=== PATIENT | female | born 1960 | race African-American/Black ===

== ENCOUNTER 2016-06-14 17:06 | Emergency (ER) | payer BC, OTHER ==
[2016-06-14 18:42] VITALS: BP 148/76
--- NOTE | 2016-06-14 18:49 | UC ---
Respiratory Complaint HPI - HPI Summary HPI Summary: 56 yo female with sore throat/nasal congestion/cough x 2 weeks no fever/chills no nausea/vomiting/diarrhea no headache - History of Current Complaint Chief Complaint: UCRespiratory Stated Complaint: SORE THROAT Time Seen by Provider: 06/14/16 18:31 Hx Obtained From: Patient Onset/Duration: Gradual Onset, Lasting Weeks Timing: Constant Severity Initially: Mild Severity Currently: Moderate Pain Intensity: 4 Pain Scale Used: 0-10 Numeric Character: Cough: Productive Aggravating Factors: Nothing Alleviating Factors: Nothing Associated Signs And Symptoms: Positive: Nasal Congestion, Hoarseness, Sinus Discomfort - Allergies/Home Medications Allergies/Adverse Reactions: Allergies Allergy/AdvReac Type Severity Reaction Status Date / Time No Known Allergies Allergy Verified 06/14/16 18:36 Home Medications: Home Medications Lisinopril [Lisinopril 30 MG-] 30 mg PO DAILY 06/14/16 [History Confirmed ] PMH/Surg Hx/FS Hx/Imm Hx Previously Healthy: Yes Cardiovascular History Of: Reports: Hypertension Cancer History Of: Denies: Breast Cancer - Surgical History Surgical History: None - Family History Known Family History: Positive: Hypertension - Social History Alcohol Use: None Substance Use Type: None Smoking Status (MU): Never Smoked Tobacco Review of Systems Constitutional: Negative Skin: Negative Eyes: Negative ENT: Sore Throat, Nasal Discharge Respiratory: Cough Cardiovascular: Negative Gastrointestinal: Negative Genitourinary: Negative Motor: Negative Neurovascular: Negative Musculoskeletal: Negative Neurological: Negative Psychological: Negative All Other Systems Reviewed And Are Negative: Yes Physical Exam Triage Information Reviewed: Yes Appearance: Well-Appearing, No Pain Distress, Well-Nourished Vital Signs: Initial Vital Signs Temp 97.9 F 06/14/16 18:36 Pulse 78 06/14/16 18:36 Resp 20 06/14/16 18:36 BP 148/76 06/14/16 18:36 Pulse Ox 100 06/14/16 18:36 Vital Signs Reviewed: Yes Eyes: Positive: Conjunctiva Clear ENT: Positive: Hearing grossly normal, Pharyngeal erythema, Nasal congestion, Nasal drainage, TM bulging. Negative: Tonsillar exudate, Trismus, Muffled/ hoarse voice Dental: Negative: Dental Fracture @, Abscess @ Neck: Positive: Supple, Nontender, Enlarged Nodes @ - ant cervical left>right Respiratory: Positive: Lungs clear, Normal breath sounds, No respiratory distress, No accessory muscle use Cardiovascular: Positive: RRR, No Murmur Neurological Exam: Normal Neurological: Positive: Alert Psychological Exam: Normal Skin Exam: Normal UC Diagnostic Evaluation - Laboratory O2 Sat by Pulse Oximetry: 100 - normal/not hypoxic Respiratory Course/Dx - Differential Dx/Diagnosis Provider Diagnoses: acute pharyngitis. acute sinusitis Discharge - Discharge Plan Condition: Stable Disposition: HOME Prescriptions: Cefuroxime Axetil [Ceftin 250 MG] 250 mg PO BID #20 tab Patient Education Materials: Pharyngitis (ED), Sinusitis (ED) Referrals: Non Staff,Doctor [Primary Care Provider] - Additional Instructions: rest fluids tylenol saline nasal spray twice daily recheck in 4-5 days if not better your strep test was negative
== END 2016-06-14 19:18 | disposition home or self-care (01) ==
LOC: UCEAST 17:06
DX: J02.9 Acute pharyngitis, unspecified (principal); J01.90 Acute sinusitis, unspecified
CPT/HCPCS: 87651; 99212; G0463

== ENCOUNTER 2017-05-14 15:54 | Emergency (ER) | payer BC ==
[2017-05-14 16:32] VITALS: BP 204/110
--- NOTE | 2017-05-14 16:58 | UC ---
Throat Pain/Nasal Min HPI - HPI Summary HPI Summary: 57 year old female presents with complains of sore throat, sinus congestion and ulcer on her tongue. - History of Current Complaint Chief Complaint: UCRespiratory Stated Complaint: THROAT COMPLAINT Time Seen by Provider: 05/14/17 16:58 Hx Obtained From: Patient Onset/Duration: Sudden Onset Severity: Moderate Pain Scale Used: 0-10 Numeric - 5 Cough: Nonproductive Associated Signs & Symptoms: Positive: Negative - Allergies/Home Medications Allergies/Adverse Reactions: Allergies Allergy/AdvReac Type Severity Reaction Status Date / Time No Known Allergies Allergy Verified 05/14/17 16:24 PMH/Surg Hx/FS Hx/Imm Hx Previously Healthy: Yes - Surgical History Surgical History: None - Family History Known Family History: Positive: Cardiac Disease - mother, Hypertension - mother Negative: Diabetes - Social History Alcohol Use: Occasionally Substance Use Type: None Smoking Status (MU): Never Smoked Tobacco - Immunization History Most Recent Influenza Vaccination: none Review of Systems Constitutional: Negative Skin: Negative Eyes: Negative ENT: Negative Respiratory: Negative Cardiovascular: Negative Gastrointestinal: Negative Genitourinary: Negative Motor: Negative Neurovascular: Negative Musculoskeletal: Negative Neurological: Negative Psychological: Negative All Other Systems Reviewed And Are Negative: Yes Physical Exam Triage Information Reviewed: Yes Vital Signs: Initial Vital Signs Temp 37.2 C 05/14/17 16:18 Pulse 105 05/14/17 16:18 Resp 26 05/14/17 16:18 BP 213/118 05/14/17 16:18 Pulse Ox 97 05/14/17 16:18 Eye Exam: Normal ENT: Positive: Pharyngeal erythema, Nasal congestion, Nasal drainage, Sinus tenderness Dental Exam: Normal Neck exam: Normal Neck: Positive: 1 Respiratory Exam: Normal Cardiovascular Exam: Normal Abdominal Exam: Normal Musculoskeletal Exam: Normal Neurological Exam: Normal Psychological Exam: Normal Skin: Positive: Other - aphthous ulcer Throat Pain/Nasal Course/Dx - Differential Dx/Diagnosis Provider Diagnoses: allergic rhinitis Discharge - Discharge Plan Condition: Stable Disposition: HOME Prescriptions: Amoxicillin/Clavulanate TAB* [Augmentin TAB 875*] 875 mg PO BID #20 tab LoraTADine TAB(NF) [Claritin 10 MG TAB(NF)] 10 mg PO DAILY #30 tab Magic M W2 Saud/Maal/Nyst/Lido* 5 ml SWISH SPIT QID PRN #120 ml PRN Reason: Pain Patient Education Materials: Pharyngitis (ED), Allergic Rhinitis (ED) Referrals: Maurisio FIERRO,Trina Lyn [Primary Care Provider] -
== END 2017-05-14 18:12 | disposition home or self-care (01) ==
LOC: UCEAST 15:54
DX: J30.9 Allergic rhinitis, unspecified (principal)
CPT/HCPCS: 87651; 99212; G0463

== ENCOUNTER 2018-07-20 18:54 | Emergency (ER) | payer BC ==
--- NOTE | 2018-07-20 19:23 | UC ---
Respiratory Complaint HPI - HPI Summary HPI Summary: Reports 1 m. of worsening cough, sob, LE edema. Has htn but has not taken meds today. Does not take meds daily. Denies recent travel. currently being worked up for CHRONIC cough x3 yrs. Of note on an ALAYNA. also c/o epigastric discomfort which improves after coughing. has been sleeping w/ pillows upright for the past mo. - History of Current Complaint Chief Complaint: UCRespiratory Stated Complaint: SORE THROAT, EAR ACHE, AND CHEST CONGESTION Time Seen by Provider: 07/20/18 19:10 Hx Obtained From: Patient Onset/Duration: Gradual Onset Severity Currently: Moderate Pain Intensity: 8 Pain Scale Used: 0-10 Numeric Aggravating Factors: Nothing Alleviating Factors: Nothing - Allergies/Home Medications Allergies/Adverse Reactions: Allergies Allergy/AdvReac Type Severity Reaction Status Date / Time No Known Allergies Allergy Verified 07/20/18 19:06 Home Medications: Home Medications Lisinopril/HCTZ 20/25(NF) [Zestoretic 20/25(NF)] 1 tab PO DAILY 07/20/18 [ History Confirmed 07/20/18] Omeprazole (Nf) [Prilosec (NF)] 40 mg PO DAILY 07/20/18 [History Confirmed 07/20] PMH/Surg Hx/FS Hx/Imm Hx Cardiovascular History: Hypertension Respiratory History: Other - chronic cough GI/ History: Gastroesophageal Reflux - Surgical History Surgical History: None - Family History Known Family History: Positive: Cardiac Disease - mother, Hypertension - mother Negative: Diabetes - Social History Alcohol Use: Occasionally Substance Use Type: None Smoking Status (MU): Never Smoked Tobacco - Immunization History Most Recent Influenza Vaccination: none Review of Systems All Other Systems Reviewed And Are Negative: Yes Constitutional: Positive: Negative Respiratory: Positive: Shortness Of Breath, Cough Cardiovascular: Positive: Chest Pain - epigastric Musculoskeletal: Positive: Edema - LE. Negative: Myalgia Neurological: Negative: Headache, Weakness Physical Exam Triage Information Reviewed: Yes Appearance: Well-Appearing Vital Signs: Initial Vital Signs Temp 97.7 F 07/20/18 19:05 Pulse 113 07/20/18 19:05 Resp 24 07/20/18 19:05 BP 202/122 07/20/18 19:05 Pulse Ox 95 07/20/18 19:05 Vital Signs Reviewed: Yes Respiratory: Positive: No respiratory distress, Accessory muscle use, Crackles - RLL Cardiovascular Exam: Normal Neurological: Positive: Alert Psychological: Positive: Other: - anxious about transportation via ambulance; able to calm her down. Respiratory Course/Dx - Course Course Of Treatment: SOB w/ an O2 of 95%, PND, LE pitting edema, and crackles on RLL. Must be r/o for CHF. sending via ambulance. HTN urgency noted. Pt stable but nervous; able to reassure. chronic cough is in process of being w/u by GI and PcP but should have her ALAYNA inhibitor reviewed to ensure that is not source of chronic cough. - Differential Dx/Diagnosis Differential Diagnosis/HQI/PQRI: Airway Obstruction, Bronchitis, CHF, Pulmonary Edema, Lower Resp Infection Provider Diagnosis: Shortness of breath, 3+ pitting edema, Hypertensive urgency Discharge - Sign-Out/Discharge Documenting (check all that apply): Patient Departure All imaging exams completed and their final reports reviewed: No Studies - Discharge Plan Condition: Fair Disposition: TRANS HIGHER LVL OF CARE FAC Patient Education Materials: Heart Failure (DC) Referrals: Maurisio FIERRO,Trina Lyn [Primary Care Provider] - Additional Instructions: consider d/c'ing ALAYNA for another med in the future. - Billing Disposition and Condition Condition: FAIR Disposition: Trans Higher Lvl of Care Fac
[2018-07-20 19:54] VITALS: BP 180/110
[2018-07-20] MEDS ORDERED: Nitroglycerin TAB 0.4 MG* 0.4 MG TAB SL ONE (20:01)
== END 2018-07-20 20:12 | disposition short-term general hospital (02) ==
LOC: UCEAST 18:54
DX: R06.02 Shortness of breath (principal); R60.9 Edema, unspecified; I16.0 Hypertensive urgency; I10 Essential (primary) hypertension; K21.9 Gastro-esophageal reflux disease without esophagitis; Z79.899 Other long term (current) drug therapy
CPT/HCPCS: 93005; 99213; A9270-GY; G0463

== ENCOUNTER 2018-07-20 20:35 | Inpatient (IN) | payer BC ==
[2018-07-20] MEDS ORDERED: Nitro 2% OINT* (Nitroglycerin) 1 INCH/PAK PAK TOPICAL ONE (20:49)
[2018-07-20] MEDS ORDERED: Furosemide IV* 10 MG/ML VIAL (40 MG) IV SLOW PU ONE (20:49)
--- NOTE | 2018-07-20 20:50 | ED ---
Shortness of Breath - HPI Summary HPI Summary: A 58 y/o F brought in by ambulance and referred from presents to ED with c/o acute on chronic SOB for past month, and worsening tonight. Associated sx: productive cough (white), CP secondary to cough, bilateral pedal edema, mild weight gain. She sleeps in a chair. Pt denies any fever, chills, erythema of eyes, sore throat, abdominal pain, N/V, dysuria, hematuria, myalgia, rash, or dizziness. Pt was given nitro at and by EMS. PMHx: HTN, denies DM. She states she is healthy, has only been to the hospital when she gave . She takes reflux medication. - History of Current Complaint Time Seen by Provider: 07/20/18 20:39 Hx Obtained From: Patient, EMS Onset/Duration: Gradual Onset, Lasting Weeks, Still Present Timing: Constant Dyspnea At: Rest Associated Signs & Symptoms: Cough (Productive), Chest Pain w/Cough, Edema - bilateral pedal edema - Allergy/Home Medications Allergies/Adverse Reactions: Allergies Allergy/AdvReac Type Severity Reaction Status Date / Time No Known Allergies Allergy Verified 07/20/18 19:06 PMH/Surg Hx/FS Hx/Imm Hx Previously Healthy: No Endocrine/Hematology History: Denies: Hx Diabetes Cardiovascular History: Reports: Hx Hypertension GI History: Reports: Hx Gastroesophageal Reflux Disease - Cancer History Hx Chemotherapy: No Hx Radiation Therapy: No - Family History Known Family History: Positive: Cardiac Disease - mother, Hypertension - mother Negative: Diabetes - Social History Occupation: Employed Full-time Lives: With Family Alcohol Use: Occasionally Hx Substance Use: No Substance Use Type: Reports: None Hx Tobacco Use: No Smoking Status (MU): Never Smoked Tobacco Review of Systems Negative: Fever, Chills Negative: Erythema Negative: Sore Throat Positive: Chest Pain - secondary to cough Positive: Shortness Of Breath, Cough Negative: Abdominal Pain, Vomiting, Nausea Negative: dysuria, hematuria Positive: Edema. Negative: Myalgia Negative: Rash Neurological: Other - neg: dizziness All Other Systems Reviewed And Are Negative: Yes Physical Exam - Summary Physical Exam Summary: Constitutional: Well-developed, Well-nourished, Alert. (-) Distressed Skin: Warm, Dry HENT: Normocephalic; Atraumatic Eyes: Conjunctiva normal Neck: Musculoskeletal ROM normal neck. (-) JVD, (-) Stridor, (-) Tracheal deviation Cardio: Rhythm regular, rate normal, Heart sounds normal; Intact distal pulses; The pedal pulses are 2+ and symmetric. Radial pulses are 2+ and symmetric. (-) Murmur Pulmonary/Chest wall: Effort normal. (-) Respiratory distress, (-) Wheezes, bibasilar crackles Abd: Soft, (-) epigastric tenderness, (-) Distension, (-) Guarding, (-) Rebound Musculoskeletal: 1+ pitting Edema Lymph: (-) Cervical adenopathy Neuro: Alert, Oriented x3 Psych: Mood and affect Normal Triage Information Reviewed: Yes Vital Signs Reviewed: Yes Diagnostics - Laboratory Result Diagrams: 07/21/18 06:23 07/21/18 15:40 Lab Statement: Any lab studies that have been ordered have been reviewed, and results considered in the medical decision making process. - Radiology CXR Radiology Interpretation Completed By: ED Physician Summary of Radiographic Findings: Pulmonary edema. - EKG 2110 Cardiac Rate: Tachycardia - 106bpm EKG Rhythm: Sinus Tachycardia Summary of EKG Findings: No STEMI. Course/Dx - Course Course Of Treatment: Pt is a 58 y/o F brought in by ambulance and referred from presents to ED with SOB for past month, and worsening tonight. Associated sx : productive cough (white phlegm), CP secondary to cough, bilateral pedal edema , mild weight gain. She sleeps in a chair. Pt denies any fever, chills, erythema of eyes, sore throat, abdominal pain, N/V, dysuria, hematuria, myalgia , rash, or dizziness. Pt was given nitro at and by EMS. Lab work shows BNP: 566. Critical lab values include troponin: 0.07. CXR shows pulmonary edema. EKG is sinus tachy at 106 bpm, no STEMI. Consulted with Dr. Viera, hospitalist, who will admit pt. - Diagnoses Provider Diagnoses: Acute exacerbation of CHF (congestive heart failure) - Physician Notifications Discussed Care of Patient With: Ayesha Viera - hospitalist Time Discussed With Above Provider: 22:01 Instructed by Provider To: Admit As Inpatient - Critical Care Time Critical Care Time: 30-74 min - 35 minutes Discharge - Sign-Out/Discharge Documenting (check all that apply): Patient Departure - ADMIT Patient Received Moderate/Deep Sedation with Procedure: No - Discharge Plan Condition: Good Disposition: ADMITTED TO [facility] - Billing Disposition and Condition Condition: GOOD Disposition: Admitted to [facility] - Attestation Statements Document Initiated by Domitilaibe: Yes Documenting Scribe: Franki Martin Provider For Whom Scarlet is Documenting (Include Credential): Dr. Jatinder Montez MD Scribe Attestation: Franki Canas scribed for Dr. Jatinder Montez MD on 07/21/18 at 2228. Scribe Documentation Reviewed: Yes Provider Attestation: The documentation as recorded by the Franki bowers accurately reflects the service I personally performed and the decisions made by , Dr. Jatinder Montez MD Status of Scribe Document: Viewed
[2018-07-20 21:38] LABS: ABS Basophils 0 10^3/ul (0-0.2); ABS Eosinophils 0.1 10^3/ul (0-0.6); ABS Lymphocytes 1.7 10^3/ul (1.0-4.8); ABS Monocytes 0.6 10^3/ul (0-0.8); ABS Neutrophils 7.4 10^3/ul (1.5-7.7); ABS Nucleated RBC 0 10^3/ul; Eosinophil % 0.9 %; Hematocrit 31 % (35-47); Hemoglobin 9.8 g/dl (12.0-16.0); Lymphocyte % 17.6 %; Mean Corpuscular HGB Conc 31 g/dl (31-36); Mean Corpuscular Hemoglobin 25 pg (27-31); Mean Corpuscular Volume 79 fL (80-97); Mean Platelet Volume 8.8 fL (7.4-10.4); Nucleated Red Blood Cells % 0.1; Platelet Count 255 10^3/ul (150-450); Red Blood Count 3.97 10^6/ul (4.00-5.40); Red Cell Distribution Width 17 % (10.5-15); White Blood Count 9.9 10^3/ul (3.5-10.8)
[2018-07-20 21:39] LABS: ALT 29 U/L (7-52); AST 44 U/L (13-39); Albumin 3.6 g/dL (3.2-5.2); Albumin/Globulin Ratio 0.8 (1-3); Alkaline Phosphatase 71 U/L (34-104); Anion Gap 7 mmol/L (2-11); BUN/Creatinine Ratio 18.9 (8-20); Blood Urea Nitrogen 20 mg/dL (6-24); CO2 Carbon Dioxide 30 mmol/L (22-32); Calcium 8.9 mg/dL (8.6-10.3); Chloride 100 mmol/L (101-111); EGFR African American 64.4 (>60); EGFR Non-African American 53.2 (>60); Globulin 4.4 g/dL (2-4); Glucose 111 mg/dL (70-100); Potassium 3.2 mmol/L (3.5-5.0); Sodium 137 mmol/L (135-145)
[2018-07-20 21:42] LABS: Troponin I 0.07 ng/mL (<0.04)
[2018-07-20] MEDS ORDERED: Metoprolol Tartrate IV* 1 MG/ML 5 ML VIAL IV ONE (22:23)
[2018-07-20] MEDS ORDERED: Aspirin EC TAB* 325 MG PO ONE (22:27)
[2018-07-20 22:54] LABS: % Iron Saturation 6 % (15-55); Iron 28 ug/dL (50-212); Total Iron Binding Capacity 454 mcg/dL (250-450); Transferrin 324 mg/dL (203-362)
[2018-07-20 22:55] LABS: Magnesium 1.7 mg/dL (1.9-2.7)
[2018-07-20] MEDS ORDERED: Magnesium Sulfate 2 GM IV* 2 GM/50 ML BAG IVPB ONE (23:13)
[2018-07-20] MEDS ORDERED: Metoprolol Tartrate IV* 1 MG/ML 5 ML VIAL IV PRN (23:14)
[2018-07-20] MEDS ORDERED: Carvedilol TAB* 6.25 MG PO ONE (23:14)
[2018-07-20] MEDS ORDERED: Al Hydrox/Mg Hydrox/Simet LIQ* 30 ML UDC PO PRN (23:15)
[2018-07-20] MEDS ORDERED: Ondansetron INJ* 2 MG/ML VIAL IV PRN (23:15)
[2018-07-20 23:16] LABS: Ferritin 350.2 ng/mL (11-307)
[2018-07-20] MEDS ORDERED: Potassium Chlor TAB* 20 MEQ TAB.ER PO ONE (23:25)
[2018-07-21 01:33] LABS: Troponin I 0.09 ng/mL (<0.04)
--- NOTE | 2018-07-21 03:09 | HP ---
CC: FLORI Temple* HISTORY AND PHYSICAL: DATE OF ADMISSION: 07/20/18 TIME OF EVALUATION: 2200 PRIMARY CARE PHYSICIAN: FLORI Temple CHIEF COMPLAINT: Shortness of breath and cough. HISTORY OF PRESENT ILLNESS: This is a 58-year-old female with past medical history of hypertension and morbidly obese, who presents to the emergency room from urgent care for cough and shortness of breath for concern for congestive heart failure. The patient states she has had a cough on and on for the past 3 years. She has been seen by ENT in the past. She went to see ENT a month ago. She states her blood pressure "was good then." They diagnosed with GERD and started her on omeprazole. She states that the cough seemed to get somewhat better, but never resolved. Her cough is not worse, but over the past week, she has had increase in shortness of breath with increase in lower extremity swelling. She denies any changes in her weight. She denies any chest pain. She does have some substernal chest pain when she coughs. She states she has had a stress test about 5 years ago that was unremarkable at that time. She has been having to sleep in a chair due to the shortness of breath. She denies any fevers or chills. No nausea, vomiting, diarrhea. No diaphoresis, no abdominal discomfort. No urinary symptoms. She denies having high salt diet, although her seems to disagree at the bedside. Otherwise, review of systems is negative. In the emergency room, the patient had labs and imaging. She was given an inch of nitro paste, Lasix 40 mg and referred to the hospitalist service for further evaluation. PAST MEDICAL HISTORY: 1. Morbidly obese. 2. Hypertension. 3. GERD. MEDICATIONS: 1. Omeprazole 40 mg p.o. daily. 2. Lisinopril/HCTZ 20/25 one tab daily. ALLERGIES: No known drug allergies. FAMILY HISTORY: Mother at age 76 related to complications from hypertension. Father from an accident. SOCIAL HISTORY: The patient lives at home with her and daughter. is her healthcare proxy. She works at [employer]. She has been working long hours recently due to tax season. No history of smoking, rare alcohol use. Code status full code. REVIEW OF SYSTEMS: A 14-point review of systems as mentioned in the HPI, otherwise negative. PHYSICAL EXAMINATION GENERAL: No acute distress, anxious with her at the bedside. VITAL SIGNS: T-max 98.6, pulse rate is 112, respiratory rate 18, oxygen saturation 98% on 2 L, blood pressure is 190/114. HEENT: Head: Normocephalic. Pupils are equal and reactive. Oropharynx: Mucous membranes are moist. NECK: Supple. No lymphadenopathy. RESPIRATORY: Bilateral rales. No increased work of breathing. CARDIAC: Tachycardic. Soft systolic murmur heard throughout. ABDOMEN: Morbidly obese, soft, nontender, nondistended. EXTREMITIES: +1 pretibial edema, pedal edema. NEUROLOGIC: Alert and oriented x3. No gross focal neurologic deficits. DIAGNOSTIC STUDIES/LAB DATA: White count 9.9, hemoglobin 9.8, hematocrit 31, platelets 255. Sodium 137, potassium 3.2, chloride 100, BUN 20, creatinine 1.06 , glucose 111. Magnesium 1.7, troponin is 0.07, BNP is 566. EKG shows sinus tachycardia with a rate of 106. Chest x-ray shows bilateral pulmonary edema. ASSESSMENT: This is a 58-year-old female with a past medical history of hypertension, who presents to the emergency room from urgent care for shortness of breath, found to be in QT compensated congestive heart failure. 1. Shortness of breath. Assessment: The patient's shortness of breath can be attributed to an acute decompensated heart failure, likely secondary to uncontrolled hypertension, causing hypertensive emergency. At this point, looking back at her prior blood pressures, she has had elevated blood pressure over 200 back in 2017, though she states it was good a month ago at the ENT office. I questioned if regarding her salt load, if this is playing a role in that, she is also morbidly obese. She is having some chest discomfort with mildly elevated troponin. No EKG changes, could be demand ischemia, but the patient would benefit from a stress test when her congestive heart failure symptoms stabilize. Plan: We are going to give her a dose of Lopressor here in the emergency room. If it does not help with her blood pressure, she may need a nitroglycerin drip. If it does, we will continue her on Lopressor p.r.n. and start her on Coreg and continue on Lasix 40 mg and to obtain an echo, trend her troponin, check a lipid panel, give her a full dose aspirin now and start her on a baby aspirin in the morning. Depending on the results of her echocardiogram, consider Cardiology consultation in the morning. 2. Anemia. The patient with a drop in her H and H from 2013, slightly microcytic. She denies any bloody stools or black stools. Plan: We will check iron studies. 3. Hypertension. As above poorly controlled. I wonder if this cough that she has been having off and on for the past 3 years is related to the ALAYNA inhibitor. We will hold her lisinopril and hydrochlorothiazide for now and manage it as above. 4. Gastroesophageal reflux disease. We will start her on pantoprazole in place of omeprazole. 5. FEN. Low salt diet. 6. DVT prophylaxis. The patient scores high risk. We will place her on heparin subcu t.i.d. 7. Code status: Full code. PATIENT TIME: Greater than 50 minutes was spent doing the history and physical , more than half the time was spent in direct patient contact. [id number]/CPS #: [id number] CHRIS
[2018-07-21] MEDS: Heparin VIAL(*) 5000 UNITS/ML VIAL (FIVE THOUSAND) SUBCUT SCH ×2 (05:13→14:45)
[2018-07-21] MEDS: Benzonatate CAP* 100 MG PO PRN ×2 (05:44→15:59)
[2018-07-21 06:33] LABS: ABS Basophils 0.1 10^3/ul (0-0.2); ABS Eosinophils 0.1 10^3/ul (0-0.6); ABS Lymphocytes 1.6 10^3/ul (1.0-4.8); ABS Monocytes 0.7 10^3/ul (0-0.8); ABS Neutrophils 7.6 10^3/ul (1.5-7.7); ABS Nucleated RBC 0 10^3/ul; Hematocrit 33 % (35-47); Hemoglobin 10.3 g/dl (12.0-16.0); Lymphocyte % 15.8 %; Mean Corpuscular HGB Conc 32 g/dl (31-36); Mean Corpuscular Hemoglobin 25 pg (27-31); Mean Corpuscular Volume 79 fL (80-97); Mean Platelet Volume 8.4 fL (7.4-10.4); Nucleated Red Blood Cells % 0; Platelet Count 285 10^3/ul (150-450); Red Blood Count 4.11 10^6/ul (4.00-5.40); Red Cell Distribution Width 18 % (10.5-15); White Blood Count 10.1 10^3/ul (3.5-10.8)
[2018-07-21 06:52] LABS: ALT 28 U/L (7-52); AST 39 U/L (13-39); Albumin 3.6 g/dL (3.2-5.2); Albumin/Globulin Ratio 0.8 (1-3); Alkaline Phosphatase 73 U/L (34-104); Anion Gap 7 mmol/L (2-11); BUN/Creatinine Ratio 18.6 (8-20); Blood Urea Nitrogen 22 mg/dL (6-24); CO2 Carbon Dioxide 31 mmol/L (22-32); Calcium 9.2 mg/dL (8.6-10.3); Chloride 100 mmol/L (101-111); Cholesterol 104 mg/dL; EGFR African American 56.9 (>60); Globulin 4.4 g/dL (2-4); Glucose 110 mg/dL (70-100); HDL Cholesterol 26.2 mg/dL; LDL Cholesterol 58 mg/dL; Magnesium 2.1 mg/dL (1.9-2.7); Potassium 3.3 mmol/L (3.5-5.0); Sodium 138 mmol/L (135-145); Triglycerides 100 mg/dL
[2018-07-21 06:53] LABS: Troponin I 0.09 ng/mL (<0.04)
[2018-07-21] MEDS: Aspirin 81 mg CHEW TAB* 81 MG TAB.CHEW PO SCH (08:38)
[2018-07-21] MEDS ORDERED: Furosemide IV* 10 MG/ML VIAL (40 MG) IV SCH (09:00)
[2018-07-21] MEDS ORDERED: Carvedilol TAB* 6.25 MG PO SCH (09:00)
[2018-07-21] MEDS ORDERED: Pantoprazole TAB * 40 MG TAB PO SCH (09:00)
[2018-07-21] MEDS ORDERED: Perflutren Lipid Microsphere* 3 ML VIAL ONE (10:53)
--- NOTE | 2018-07-21 12:30 | ECHO ---
Patient: VIK GILES [facility] Rec#: [id number] : 1960 Date: 07/21/2018 Age: 58y Height: 165 cm / 65.0 in Weight: 99.8 kg / 220.0 lbs Sex: F BSA: 2.1 Room#: 452 Admit Date#: 07/20/2018 Type: Inpatient Referring: Ayesha Viera Reading: Zac Cui MD [employer]: Nat Partida RN RDCS CC: Trina Frederick Transthoracic Echocardiogram Indication: SOB, CHF BP: 134/88 HR: 83 Rhythm: NSR Findings History: HTN, GERD, morbid obesity Technical Comments: The study is technically limited due to poor acoustic windows. The study is technically limited due to patient body habitus. Left Ventricle: The left ventricular chamber size is mildly dilated. Mild concentric left ventricular hypertrophy is observed. There is global hypokinesis of the left ventricle with minor regional variation. There is severely decreased left ventricular systolic function. The estimated ejection fraction is 25-30%. Closer to 25%. The apex appears somewhat better preserved. The left ventricular diastolic filling pattern is restrictive. Left Atrium: The left atrium is mild to moderately dilated. Right Ventricle: The right ventricle is slightly dilated. The right ventricular global systolic function is moderately reduced. Right Atrium: The right atrium is mild to moderately dilated. Aortic Valve: The aortic valve leaflets are mildly thickened. There is a trace of aortic regurgitation. There is no evidence of aortic stenosis. Mitral Valve: The mitral valve leaflets are mildly thickened. There is a trace of mitral regurgitation. There is no evidence of mitral stenosis. Tricuspid Valve: The tricuspid valve leaflets are normal. There is trace tricuspid regurgitation. There is evidence of mild to moderate pulmonary hypertension. There is no tricuspid stenosis. Pulmonic Valve: The pulmonic valve structure is not well visualized. There is a trace pulmonic regurgitation. There is no pulmonic stenosis. Pericardium: A trivial pericardial effusion is visualized. A pericardial fat pad is visualized. Aorta: There is mild dilatation of the ascending aorta. The aortic arch is not well visualized. There is no dilation of the aortic root. Pulmonary Artery: The main pulmonary artery is not well visualized. Venous: The inferior vena cava is dilated. There is less than 50% respiratory change in the inferior vena cava dimension. Contrast: Definity was used to optimize study. A total of 5 ml of diluted Definity was given IV to enhance endocardial border definition. Summary: There was not any prior study for comparison. Conclusions The left ventricular chamber size is mildly dilated. Mild concentric left ventricular hypertrophy is observed. There is global hypokinesis of the left ventricle with minor regional variation. There is severely decreased left ventricular systolic function. The estimated ejection fraction is 25-30%, Closer to 25%. The apex appears somewhat better preserved. The left ventricular diastolic filling pattern is restrictive. The left atrium is mild to moderately dilated. The right ventricle is slightly dilated. The right ventricular global systolic function is moderately reduced. The right atrium is mild to moderately dilated. There is a trace of mitral regurgitation. There is trace tricuspid regurgitation. There is evidence of mild to moderate pulmonary hypertension. There is mild dilatation of the ascending aorta. A trivial pericardial effusion is visualized. There is less than 50% respiratory change in the inferior vena cava dimension. Measurements Name Value Normal Range RVIDd (AP) 2D 3.3 cm (0.9 - 2.6) RVDdMajor (2D) 4.3 cm (2.2 - 4.4) RAd ISD 4CH 5.8 cm (3.4 - 4.9) RA (A4C)W 4.4 cm (2.9 - 4.6) IVSd (2D) 1.1 cm (0.6 - 1) LVPWd (2D) 1.1 cm (0.6 - 1) LVIDd (2D) 5.8 cm (3.6 - 5.4) LVIDs (2D) 5.2 cm - LV FS (2D) 10 % (25 - 45) Aortic Annulus 2.1 cm (1.4 - 2.6) Ao root diameter (2D) 3.2 cm (2.1 - 3.5) Ascending Ao 3.8 cm (2.1 - 3.4) LA dimension (AP) 2D 4.9 cm (2.3 - 3.8) LAd ISD 4CH 6.2 cm (2.9 - 5.3) LA ISD 4CH W 4.8 cm (2.5 - 4.5) Name Value Normal Range LA ESV BP (A/L) index 38 ml/m2 - Name Value Normal Range MV E-wave Vmax 1.1 m/sec - MV deceleration time 120 msec - MV A-wave Vmax 0.3 m/sec - MV E:A ratio 3.9 ratio - LV septal e' Vmax 0.05 m/sec - LV lateral e' Vmax 0.06 m/sec - LV E:e' septal ratio 22 ratio - LV E:e' lateral ratio 18.3 ratio - Name Value Normal Range AV Vmax 1.5 m/sec - AV VTI 19.9 cm - AV peak gradient 9 mmHg - AV mean gradient 5 mmHg - LVOT Vmax 0.95 m/sec - LVOT VTI 14.8 cm - LVOT peak gradient 4 mmHg - LVOT mean gradient 2 mmHg - Name Value Normal Range TR Vmax 2.6 m/sec - TR peak gradient 27 mmHg - RAP 15 mmHg - RVSP 42 mmHg - IVC diameter 2.8 cm - Name Value Normal Range PV Vmax 0.67 m/sec -
--- NOTE | 2018-07-21 14:26 | PN ---
Subjective Interval History: Pt reports improvement in SOB since furosemide administered. No other questions or symptoms to report. Objective Active Medications: Acetaminophen (Tylenol Tab*) 650 mg PO Q4H PRN PRN Reason: FEVER/PAIN Aspirin (Aspirin 81 Mg Chew Tab*) 81 mg PO DAILY [facility] Last Admin: 07/21/18 08:38 Dose: 81 mg Benzonatate (Tessalon Cap*) 100 mg PO BID PRN PRN Reason: COUGH Last Admin: 07/21/18 05:44 Dose: 100 mg Carvedilol (Coreg Tab*) 6.25 mg PO BID [facility] Last Admin: 07/21/18 08:38 Dose: 6.25 mg Enoxaparin Sodium (Lovenox(*)) 40 mg SUBCUT Q24H [facility] Ferrous Sulfate (Ferrous Sulfate Tab*) 325 mg PO DAILY [facility] Furosemide (Lasix Iv*) 40 mg IV BID [facility] Last Admin: 07/21/18 08:39 Dose: 40 mg Losartan Potassium (Cozaar Tab*) 25 mg PO BEDTIME [facility] Ondansetron HCl (Zofran Inj*) 4 mg IV Q4H PRN PRN Reason: NAUSEA/VOMITING Pantoprazole Sodium (Protonix Tab*) 40 mg PO DAILY [facility] Last Admin: 07/21/18 08:38 Dose: 40 mg Vital Signs - 8 hr 07/21/18 08:00 Temperature 96.5 F Pulse Rate 78 Respiratory 18 Rate Blood Pressure 155/94 (mmHg) O2 Sat by Pulse 99 Oximetry Oxygen Devices in Use Now: None, Nasal Cannula Appearance: well appearing, speaking in full sentences Neck: - - unable to see JVP due to habitus Respiratory: - - mild bibasilar crackles Cardiovascular: RRR - no mgr Abdominal: - - protuberant, nontender, soft Lymphatic: No Cervical Adenopathy Extremities: - - 2+ pitting edema 2/3 up shins Result Diagrams: 07/21/18 06:23 07/21/18 06:23 Assess/Plan/Problems-Billing 58W with obesity, HTN, chronic cough, presents with progressive dyspnea and LE edema. She was found to be hypertensive and with CXR showing pulmonary edema. TTE with new HFrEF 25%. - Patient Problems (1) Heart failure with reduced ejection fraction Comment: New diagnosis and TTE with wall motion abnormalities. Could be from ischemic heart disease and/or known history of severe hypertension. Idiopathic common as well but dx of exclusion. - cardiology consult placed - starting on HF regimen: carvedilol 6.26 q12h, losartan 25mg -> continue to titrate up as tolerated - cont on IV furosemide 40mg bid - monitor BMP and replete 'lytes prn - likely mild troponin elevation from demand in setting of acute HF exacerbation - cont to trend until peak; currently without symptoms or EKG changes; monitor closely - f/u TSH - cont ASA for primary ppx, will consider statin as well based off ASCVD risk (2) Hypertension Comment: BP 201/144 on presentation - could have componend of HTNsive emergency. - HFrEF regimen: cont carvedilol 6.25mg q12h - start on losartan 25mg tonight (may have chronic cough from ALAYNA-I) - eventually may need spironolactone for HF (3) Obesity (BMI 30-39.9) Current Visit: Yes Comment: - diet and exercise encouraged (4) Anemia Current Visit: Yes Comment: Microcytic with low iron and high TIBC. Also with high ferritin but could be in setting of acute illness (acute phase reactant). - start on ferrous sulfate PO daily - age appropriate cancer screening as outpatient (5) Chronic cough Current Visit: Yes Comment: Starting around 2015. Could be from ALAYNA-I. Recently was trialed on PPI with slight improvement in symptoms. - cont PPI for now - replace ALAYNA-I with ARB (6) DVT prophylaxis Current Visit: Yes Status: Acute Code(s): JLW4421 - SNOMED Code(s): 691823504 Comment: cont LMWH subq daily, CrCl > 30 (7) Full code status Current Visit: Yes Status: Acute Code(s): Z78.9 - OTHER SPECIFIED HEALTH STATUS SNOMED Code(s): 330858668 Status and Disposition: Needs inpatient medical admission for IV diuresis and new HF work up.
[2018-07-21] MEDS: Ferrous Sulfate TAB* 325 MG PO SCH (14:52)
[2018-07-21] MEDS: Enoxaparin(*) 40 MG/0.4 ML SYR SUBCUT SCH (14:53)
[2018-07-21] MEDS ORDERED: Potassium Chloride LIQUID* 20 MEQ PACKET PO ONE (15:01)
[2018-07-21] MEDS: Furosemide IV* 10 MG/ML VIAL (40 MG) IV SCH (15:52)
[2018-07-21] MEDS ORDERED: Losartan TAB* 25 MG PO SCH ×2 (16:00→21:00)
[2018-07-21 16:10] LABS: Anion Gap 9 mmol/L (2-11); BUN/Creatinine Ratio 19.5 (8-20); Blood Urea Nitrogen 29 mg/dL (6-24); CO2 Carbon Dioxide 29 mmol/L (22-32); Chloride 99 mmol/L (101-111); EGFR African American 43.5 (>60); EGFR Non-African American 35.9 (>60); Glucose 114 mg/dL (70-100); Potassium 3.3 mmol/L (3.5-5.0); Sodium 137 mmol/L (135-145)
[2018-07-21 16:14] LABS: Troponin I 0.09 ng/mL (<0.04)
[2018-07-21] MEDS ORDERED: Al Hydrox/Mg Hydrox/Simet LIQ* 30 ML UDC PO PRN (16:36)
[2018-07-21] MEDS: Acetaminophen TAB* 325 MG PO PRN ×2 (17:53→23:52)
[2018-07-21] MEDS: Melatonin 3 MG TAB PO PRN (21:20)
[2018-07-22] MEDS ORDERED: traMADol TAB* 50 MG PO ONE ×3 (01:18→21:25)
[2018-07-22] MEDS: Furosemide IV* 10 MG/ML VIAL (40 MG) IV SCH ×2 (05:29→16:08)
[2018-07-22 06:21] LABS: ABS Basophils 0.1 10^3/ul (0-0.2); ABS Eosinophils 0 10^3/ul (0-0.6); ABS Lymphocytes 2.3 10^3/ul (1.0-4.8); ABS Monocytes 1.1 10^3/ul (0-0.8); ABS Neutrophils 12.3 10^3/ul (1.5-7.7); ABS Nucleated RBC 0 10^3/ul; Eosinophil % 0.1 %; Hematocrit 32 % (35-47); Hemoglobin 10.2 g/dl (12.0-16.0); Lymphocyte % 14.3 %; Mean Corpuscular HGB Conc 32 g/dl (31-36); Mean Corpuscular Hemoglobin 25 pg (27-31); Mean Corpuscular Volume 78 fL (80-97); Nucleated Red Blood Cells % 0.1; Platelet Count 270 10^3/ul (150-450); Red Blood Count 4.13 10^6/ul (4.00-5.40); Red Cell Distribution Width 18 % (10.5-15); White Blood Count 15.7 10^3/ul (3.5-10.8)
[2018-07-22 07:30] LABS: BUN/Creatinine Ratio 23.5 (8-20); Calcium 9.1 mg/dL (8.6-10.3); EGFR African American 48.3 (>60); EGFR Non-African American 39.9 (>60); Magnesium 1.7 mg/dL (1.9-2.7); Potassium 3.3 mmol/L (3.5-5.0)
[2018-07-22 07:46] LABS: TSH (Thyroid Stimulating Horm) 1.41 mcIU/mL (0.34-5.60)
[2018-07-22] MEDS: Aspirin 81 mg CHEW TAB* 81 MG TAB.CHEW PO SCH (08:36)
[2018-07-22] MEDS: Ferrous Sulfate TAB* 325 MG PO SCH (08:36)
[2018-07-22] MEDS ORDERED: Pantoprazole TAB * 40 MG TAB PO SCH (09:00)
[2018-07-22] MEDS ORDERED: Magnesium Sulfate 2 GM IV* 2 GM/50 ML BAG IVPB ONE (09:00)
[2018-07-22] MEDS: Spironolactone TAB* 25 MG PO SCH (10:36)
[2018-07-22] MEDS: Losartan TAB* 25 MG PO SCH ×2 (10:36→21:09)
[2018-07-22] MEDS: KCL 20 MEQ/100 ML IVPREMIX* 20 MEQ/100 ML BAG IV SCH ×3 (10:37→22:21)
[2018-07-22] MEDS: Iron Sucrose* 200 MG in NS 0.9% 100 ML* 100 ML IVPB SCH (12:44)
--- NOTE | 2018-07-22 13:18 | CONS ---
CC: Zac Cui MD; FLORI Temple, at [facility] CARDIOLOGY CONSULTATION REPORT: DATE OF CONSULT: REQUESTING PHYSICIAN: Dr. Susie Mcdonnell REASON FOR EVALUATION: Cardiomyopathy. HISTORY OF PRESENT ILLNESS: Maliha is a very pleasant 58-year-old woman with history of hypertension, obesity. She was started on lisinopril/ hydrochlorothiazide 3 years ago for hypertension, developed a cough. Apparently , she was treated for allergies, reflux. Her cough was not attributed to her lisinopril until this admission. About a month ago, she went to see ENT because of the cough. She said her blood pressures were normal and she was started on omeprazole with no significant improvement in her cough. Over the last month, she has developed worsening edema and shortness of breath. She also developed orthopnea, had to sit in a chair at night because of shortness of breath and she also last week before admission, developed pressure in her epigastric area which was worse with coughing, no change with position. No significant diaphoresis. No hematemesis, hematochezia. No fevers or chills. She said that she came to the emergency room on because of the symptoms , was noted to be in congestive heart failure, possible infiltrate. She also had anemia and renal failure and elevated BNP. She was started on IV Lasix. Her lisinopril/hydrochlorothiazide was discontinued and when she was started on beta edgardo, carvedilol, she reports that she is feeling much better. Her edema has improved. She was able to lie down last night, but said that she was uncomfortable because of right flank pain and left neck pain after receiving potassium. That pain was positional. She denies previous heart disease. She denies hyperlipidemia, diabetes, and she denies tobacco use. She said she has gained 20 pounds over the last year. PAST MEDICAL HISTORY: Includes: 1. GERD. 2. Hypertension. 3. Morbid obesity. 4. Congestive heart failure. MEDICATIONS: As an outpatient include: 1. Omeprazole 40 mg a day. 2. Lisinopril/hydrochlorothiazide 20/25. As an inpatient, she is on: 1. Acetaminophen. 2. Maalox. 3. Aspirin 81 mg a day. 4. Tessalon 100 mg b.i.d. 5. Enoxaparin 40 mg subcu q.24. 6. Iron sulfate 325 a day. 7. Furosemide 40 mg IV twice a day. 8. Losartan 25 mg b.i.d. 9. Melatonin 3 mg at bedtime. 10. Zofran 4 mg IV q.4. 11. Potassium chloride IV. 12. Spironolactone 25 mg daily. She had been on bisoprolol for her elevated blood pressures yesterday and carvedilol 6.25 twice a day yesterday. ALLERGIES: She has no known allergies but did develop a cough on lisinopril. SOCIAL HISTORY: She is , has 2 daughters, one of whom accompanies her. She works at [employer]. She was born in [place] and [facility] and has lived in [place] for about 7 years. She has 5 siblings who are alive and well. Her father of an accidental . Her mother at 78, had a pacemaker. REVIEW OF SYSTEMS: Review of systems x10 was negative except as above. PHYSICAL EXAM: She is well-developed, morbidly obese female, in no apparent distress. Weight 236 pounds 8 ounces. States her weight was 220 on 07/20/18, 236 yesterday and 236 today. Blood pressure 156/100, O2 sats 87%. Afebrile. JVD difficult to assess due to neck habitus. No cervical adenopathy. No thyromegaly. Carotids 2+ without bruits. Atraumatic, normocephalic. Extraocular muscles intact. Sclerae anicteric. Cardiac Exam: S1 and S2 with a S3 gallop heard at the left lower sternal border. Chest was remarkable for rales about a quarter way up bilaterally, is being cleared with coughing. Abdomen: Obese. Bowel sounds present. No hepatosplenomegaly, although exam is somewhat limited by morbid obesity. Femoral pulse intact without bruits. Distal pulses intact with 2+ edema of her lower extremities and feet. Motor strength 5/5 bilaterally. Deep tendon reflexes 2/4. Alert and oriented x3. DIAGNOSTIC STUDIES/LAB DATA: Her labs included white count of 15.7 today, up from 9.9; hemoglobin at 10.2; hematocrit at 32; MCV is 78. Sodium 135; potassium at 3.3; carbon dioxide 98; BUN at 32; creatinine at 1.36, down from 1.49 yesterday. Hemoglobin A1c is 5.8. Magnesium 1.7, down from 2.1. Troponin 0.09, 0.09, 0.09. BNP elevated at 566. TSH normal at 1.41. EKG: Sinus rhythm, poor R-wave progression, nonspecific T-wave changes. EKG from yesterday revealed sinus rhythm with poor R-wave progression, nonspecific ST-T changes. Her echocardiogram from yesterday revealed mild LV dilatation, mild concentric LVH, global hypokinesis with minor regional variation. The apex appeared somewhat better preserved compared to the other segments. There was abnormal diastolic pattern with restricted pattern, mild to moderately dilated LA. RV slightly dilated. RV global function was moderately reduced. Trace MR. Trace TR. Mild to moderate pulmonary hypertension. Mild dilatation of the ascending aorta. Trivial pericardial effusion. No previous. Her chest x-ray revealed pulmonary edema with associated pleural effusion, coexistent pneumonia in lung base is not excluded. IMPRESSION AND PLAN: My impression is that Ms. Caleb Ruano has decompensated congestive heart failure and hypertension and left ventricular dysfunction of unclear etiology. Seems as though her cough initially may have been related to lisinopril, cannot exclude underlying infection given her chest x-ray and mild persistent cough. She also may have developed a viral cardiomyopathy or a hypertensive cardiomyopathy. Certainly, given her age and risk factors, cannot exclude ischemic cardiomyopathy, although the appearance on the echocardiogram was more consistent with a nonischemic cardiomyopathy. For the time being, I have recommended the followin. We will continue with gentle diuresis you are doing. 2. We will continue with blood pressure and heart failure treatment with advancing her ARB as tolerated. 3. We will add Aldactone given her heart failure and her low potassium monitoring carefully for progression of her renal dysfunction and hyperkalemia. 4. We would replace her magnesium. 5. We would replace her iron to try to improve her red cell mass and improve her oxygen carrying capacity. 6. We will continue diuresis as you are doing and follow daily weights and I's and O's. 7. We will consider restarting a low dose of carvedilol once her volume status is better controlled and her pulmonary findings are improved. 8. I have advised her to avoid sodium and we talked about diet. 9. We would replace her iron as you are doing. 10. We would replace her magnesium. 11. We talked about the potential for coronary artery disease and an evaluation at some point with either cardiac catheterization or noninvasive means will be considered. Reluctant to perform a cath immediately due to her renal deficiency and decompensated heart failure. She also understands the potential for arrhythmia and we will consider a LifeVest prior to discharge until we can determine whether her LV function has recovered. Longer term, we could consider referral to the [facility] for further evaluation, and perhaps a cardiac MRI. Further recommendations will depend on her clinical course. Discussed with Dr. Shireen Sommer of the hospitalist service. [id number]/[facility] #: [id number] CHRIS
[2018-07-22 15:09] LABS: BUN/Creatinine Ratio 24.6 (8-20); EGFR African American 50.9 (>60); EGFR Non-African American 42.1 (>60); Magnesium 2.2 mg/dL (1.9-2.7); Potassium 3.4 mmol/L (3.5-5.0)
[2018-07-22] MEDS: Enoxaparin(*) 40 MG/0.4 ML SYR SUBCUT SCH (16:08)
--- NOTE | 2018-07-22 20:04 | PN ---
Subjective Interval History: New leukocytosis without focal signs of infx. Pt reports that her cough is nearly resolved. She has remained afebrile. Reports much improved abdominal pain (thinks it was from PO potassium yesterday). No dysurea or chills. Spirits up - feeling stronger than before admission. Daughter reports last night her mother was able to sleep nearly flat for the first time in months. Objective Active Medications: Acetaminophen (Tylenol Tab*) 650 mg PO Q4H PRN PRN Reason: FEVER/PAIN Last Admin: 07/21/18 23:52 Dose: 650 mg Al Hydrox/Mg Hydrox/Simethicone (Maalox Plus*) 30 ml PO Q4H PRN PRN Reason: INDIGESTION Last Admin: 07/21/18 17:53 Dose: 30 ml Aspirin (Aspirin 81 Mg Chew Tab*) 81 mg PO DAILY [facility] Last Admin: 07/22/18 08:36 Dose: 81 mg Benzonatate (Tessalon Cap*) 100 mg PO BID PRN PRN Reason: COUGH Last Admin: 07/21/18 15:59 Dose: 100 mg Enoxaparin Sodium (Lovenox(*)) 40 mg SUBCUT Q24H [facility] Last Admin: 07/22/18 16:08 Dose: 40 mg Furosemide (Lasix Iv*) 40 mg IV 0600,1500 [facility] Last Admin: 07/22/18 16:08 Dose: 40 mg Iron Sucrose 200 mg/ Sodium (Chloride) 110 mls @ 110 mls/hr IVPB DAILY [facility] Stop: 07/24/18 12:00 Last Admin: 07/22/18 12:44 Dose: 110 mls/hr Losartan Potassium (Cozaar Tab*) 25 mg PO BID [facility] Last Admin: 07/22/18 10:36 Dose: 25 mg Melatonin (Melatonin) 3 mg PO BEDTIME PRN; Protocol PRN Reason: SLEEP Last Admin: 07/21/18 21:20 Dose: 3 mg Ondansetron HCl (Zofran Inj*) 4 mg IV Q4H PRN PRN Reason: NAUSEA/VOMITING Spironolactone (Aldactone Tab*) 25 mg PO DAILY [facility] Last Admin: 07/22/18 10:36 Dose: 25 mg Vital Signs - 8 hr 07/22/18 07/22/18 12:03 15:35 Temperature 96.8 F 96.9 F Pulse Rate 80 80 Respiratory 20 14 Rate Blood Pressure 154/103 139/87 (mmHg) O2 Sat by Pulse 95 99 Oximetry Oxygen Devices in Use Now: None Appearance: lying at 30 degress in bed, appears well, pleasant; no increased work of breathing Neck: - - unable to see JVP Respiratory: - - bibasilar crackles Cardiovascular: RRR Abdominal: NL Sounds; No Tenderness; No Distention Extremities: - - 2+ edema correction up shins (improved) Result Diagrams: 07/22/18 05:58 07/22/18 14:41 Assess/Plan/Problems-Billing 58W with obesity, HTN, chronic cough, presents with progressive dyspnea and LE edema. She was found to be hypertensive and with CXR showing pulmonary edema. TTE with new HFrEF 25%. - Patient Problems (1) Heart failure with reduced ejection fraction Comment: New diagnosis and TTE with wall motion abnormalities not typical for ischemic cardiomyopathy, still could be from ischemic heart disease and/or known history of severe hypertension. Idiopathic common as well but dx of exclusion. A1c 5.8%, TSH wnl. - appreciate cardiology recs - cont on IV furosemide 40mg bid - monitor BMP and replete 'lytes prn - HF regimen: increase losartan to 25mg bid; starting spironolactone 25mg daily (should help with low K) - consider beta-edgardo when closer to euvolemic - stricts I&Os and daily weights - cont ASA for primary ppx, will consider statin as well based off ASCVD risk (2) Hypertension Comment: BP 201/144 on presentation - could have componend of HTNsive emergency. - HFrEF regimen: losartan and spironolactone as above (3) Anemia Comment: Microcytic with low iron and high TIBC. Also with high ferritin but could be in setting of acute illness (acute phase reactant). - will top up with IV iron while admitted - should have daily PO iron on discharge - age appropriate cancer screening as outpatient (4) Obesity (BMI 30-39.9) Comment: - diet and exercise encouraged (5) Chronic cough Comment: Starting around 2015. Could be from ALAYNA-I. Recently was trialed on PPI but wanted to stop - had no GI symptoms. - replace ALAYNA-I with ARB - monitor for signs of PNA - pt with recent increase in WBC (although cough now improving) (6) DVT prophylaxis Comment: cont LMWH subq daily, CrCl > 30 (7) Full code status Status and Disposition: Needs inpatient medical admission for IV diuresis and new HF work up.
[2018-07-23] MEDS: KCL 20 MEQ/100 ML IVPREMIX* 20 MEQ/100 ML BAG IV SCH (00:46)
[2018-07-23] MEDS: Furosemide IV* 10 MG/ML VIAL (40 MG) IV SCH ×2 (06:25→16:00)
[2018-07-23 08:38] LABS: Hematocrit 33 % (35-47); Hemoglobin 10.1 g/dl (12.0-16.0); Mean Corpuscular HGB Conc 31 g/dl (31-36); Mean Corpuscular Hemoglobin 25 pg (27-31); Mean Corpuscular Volume 80 fL (80-97); Red Blood Count 4.12 10^6/ul (4.00-5.40); Red Cell Distribution Width 18 % (10.5-15); White Blood Count 12.8 10^3/ul (3.5-10.8)
[2018-07-23 08:47] LABS: Anion Gap 10 mmol/L (2-11); CO2 Carbon Dioxide 27 mmol/L (22-32); Chloride 98 mmol/L (101-111); Magnesium 1.8 mg/dL (1.9-2.7); Potassium 3.8 mmol/L (3.5-5.0); Sodium 135 mmol/L (135-145)
[2018-07-23 08:52] LABS: BUN/Creatinine Ratio 24.8 (8-20); Blood Urea Nitrogen 30 mg/dL (6-24); EGFR African American 55.3 (>60); EGFR Non-African American 45.7 (>60); Glucose 96 mg/dL (70-100)
[2018-07-23 09:04] LABS: ABS Basophils 0.1 10^3/ul (0-0.2); ABS Eosinophils 0.1 10^3/ul (0-0.6); ABS Lymphocytes 1.9 10^3/ul (1.0-4.8); ABS Monocytes 0.9 10^3/ul (0-0.8); ABS Neutrophils 9.8 10^3/ul (1.5-7.7); ABS Nucleated RBC 0 10^3/ul; Eosinophil % 1.1 %; Lymphocyte % 14.7 %; Mean Platelet Volume 9.2 fL (7.4-10.4); Nucleated Red Blood Cells % 0.1; Platelet Count 227 10^3/ul (150-450)
[2018-07-23] MEDS ORDERED: traMADol TAB* 50 MG PO PRN (09:47)
[2018-07-23] MEDS: Aspirin 81 mg CHEW TAB* 81 MG TAB.CHEW PO SCH (09:47)
[2018-07-23] MEDS: Losartan TAB* 25 MG PO SCH ×2 (09:47→20:10)
[2018-07-23] MEDS: Iron Sucrose* 200 MG in NS 0.9% 100 ML* 100 ML IVPB SCH (09:47)
[2018-07-23] MEDS: Spironolactone TAB* 25 MG PO SCH (09:47)
[2018-07-23] MEDS: Benzonatate CAP* 100 MG PO PRN (09:47)
[2018-07-23] MEDS ORDERED: Docusate CAP* 100 MG PO PRN (09:49)
[2018-07-23] MEDS ORDERED: Polyethylene Glycol 3350* 17 GM PACKET PO PRN (09:49)
--- NOTE | 2018-07-23 09:50 | PN ---
Subjective Date of Service: 07/23/18 Interval History: HD #3 on 07/23 55 yo F with PMH HTN, BMI >50, newly dx HFrEF 25% (thought to be NICM). No overnight events. VSS, off O2 still has c/o abdominal pain, no BM, good UOP - 970 for 24 hours, labs stable, mild leukocytosis, trending down. This afternoon seen with at bedside, she is feeling much better, feels swelling in legs is going down, has more energy, walking around the floor. Still with sig UOP. No CP, no SOB, no or MSK complaints. Mild cough, but much improved. Has had some stomach pain, likely combo of constipation and perhaps mild edema, PRN tramadol 50mg, and start BR Objective Active Medications: Acetaminophen (Tylenol Tab*) 650 mg PO Q4H PRN PRN Reason: FEVER/PAIN Last Admin: 07/21/18 23:52 Dose: 650 mg Al Hydrox/Mg Hydrox/Simethicone (Maalox Plus*) 30 ml PO Q4H PRN PRN Reason: INDIGESTION Last Admin: 07/21/18 17:53 Dose: 30 ml Aspirin (Aspirin 81 Mg Chew Tab*) 81 mg PO DAILY [facility] Last Admin: 07/22/18 08:36 Dose: 81 mg Benzonatate (Tessalon Cap*) 100 mg PO BID PRN PRN Reason: COUGH Last Admin: 07/21/18 15:59 Dose: 100 mg Enoxaparin Sodium (Lovenox(*)) 40 mg SUBCUT Q24H [facility] Last Admin: 07/22/18 16:08 Dose: 40 mg Furosemide (Lasix Iv*) 40 mg IV 0600,1500 [facility] Last Admin: 07/23/18 06:25 Dose: 40 mg Iron Sucrose 200 mg/ Sodium (Chloride) 110 mls @ 110 mls/hr IVPB DAILY [facility] Stop: 07/24/18 12:00 Last Admin: 07/22/18 12:44 Dose: 110 mls/hr Losartan Potassium (Cozaar Tab*) 25 mg PO BID [facility] Last Admin: 07/22/18 21:09 Dose: 25 mg Melatonin (Melatonin) 3 mg PO BEDTIME PRN; Protocol PRN Reason: SLEEP Last Admin: 07/21/18 21:20 Dose: 3 mg Ondansetron HCl (Zofran Inj*) 4 mg IV Q4H PRN PRN Reason: NAUSEA/VOMITING Spironolactone (Aldactone Tab*) 25 mg PO DAILY [facility] Last Admin: 07/22/18 10:36 Dose: 25 mg Vital Signs - 8 hr 07/23/18 07/23/18 07/23/18 03:47 07:36 07:40 Temperature 98.0 F 98.3 F Pulse Rate 81 81 Respiratory 18 18 26 Rate Blood Pressure 145/103 145/98 (mmHg) O2 Sat by Pulse 95 96 Oximetry Oxygen Devices in Use Now: None Appearance: Pleasant woman in NAD Eyes: No Scleral Icterus, PERRLA Ears/Nose/Mouth/Throat: NL Teeth, Lips, Gums, Mucous Membranes Moist Neck: NL Appearance and Movements; NL JVP Respiratory: Symmetrical Chest Expansion and Respiratory Effort, Clear to Auscultation Cardiovascular: NL Sounds; No Murmurs; No JVD, RRR Abdominal: NL Sounds; No Tenderness; No Distention Lymphatic: No Cervical Adenopathy Extremities: - - + 3+ edema Skin: No Rash or Ulcers Neurological: Alert and Oriented x 3 Result Diagrams: 07/23/18 08:11 07/23/18 08:09 Assess/Plan/Problems-Billing 58W with obesity, HTN, chronic cough, presents with progressive dyspnea and LE edema. She was found to be hypertensive and with CXR showing pulmonary edema. TTE with new HFrEF 25% thought to be NICM 2/2 viral etiology or HTN - Patient Problems (1) Heart failure with reduced ejection fraction Current Visit: Yes Status: Acute Code(s): I50.20 - UNSPECIFIED SYSTOLIC ( CONGESTIVE) HEART FAILURE SNOMED Code(s): 355794160 Comment: New diagnosis and TTE with wall motion abnormalities not typical for ischemic cardiomyopathy, still could be from ischemic heart disease and/or known history of severe hypertension. Idiopathic common as well but dx of exclusion. A1c 5.8%, TSH wnl. - appreciate cardiology recs - cont on IV furosemide 40mg bid - monitor BMP and replete 'lytes prn - HF regimen: increase losartan to 25mg bid; starting spironolactone 25mg daily (should help with low K) - consider beta-edgardo when closer to euvolemic - stricts I&Os and daily weights - cont ASA for primary ppx, will consider statin as well based off ASCVD risk (2) Hypertension Current Visit: Yes Status: Acute Code(s): I10 - ESSENTIAL (PRIMARY) HYPERTENSION SNOMED Code(s): 98616467 Comment: BP 201/144 on presentation - could have componend of HTNsive emergency. - HFrEF regimen: losartan and spironolactone as above (3) Anemia Current Visit: Yes Status: Acute Code(s): D64.9 - ANEMIA, UNSPECIFIED SNOMED Code(s): 902228364 Comment: Microcytic with low iron and high TIBC. Also with high ferritin but could be in setting of acute illness (acute phase reactant). - will top up with IV iron while admitted - should have daily PO iron on discharge - age appropriate cancer screening as outpatient (4) Chronic cough Current Visit: Yes Status: Acute Code(s): R05 - COUGH SNOMED Code(s): 64972537 Comment: Starting around 2015. Could be from ALAYNA-I. Recently was trialed on PPI but wanted to stop - had no GI symptoms. - replace ALANYA-I with ARB - Improved sig today (5) Obesity (BMI 30-39.9) Current Visit: Yes Status: Acute Code(s): E66.9 - OBESITY, UNSPECIFIED SNOMED Code(s): 431558413 Comment: - diet and exercise encouraged (6) Abdominal pain Current Visit: Yes Status: Acute Code(s): R10.9 - UNSPECIFIED ABDOMINAL PAIN SNOMED Code(s): 40233472 Comment: Unclear etiology, has been rec'g Tramadol, will allow BID PRN, will start bowel regimen given IV iron and no BM -Senna Docusate, Miralax (7) DVT prophylaxis Current Visit: Yes Status: Acute Code(s): FSD9197 - SNOMED Code(s): 759657113 Comment: cont LMWH subq daily, CrCl > 30 (8) Full code status Current Visit: Yes Status: Acute Code(s): Z78.9 - OTHER SPECIFIED HEALTH STATUS SNOMED Code(s): 735671099 Status and Disposition: Inpatient, possibly repeat TTE Tues for eval of life vest
[2018-07-23] MEDS: Senna TAB PO SCH (09:58)
[2018-07-23] MEDS ORDERED: Magnesium Sulfate 2 GM IV* 2 GM/50 ML BAG IVPB ONE (15:04)
[2018-07-23] MEDS ORDERED: Metolazone TAB* 5 MG PO ONE (15:08)
[2018-07-23] MEDS: Carvedilol TAB* 3.125 MG PO SCH ×2 (15:29→20:09)
[2018-07-23] MEDS: Enoxaparin(*) 40 MG/0.4 ML SYR SUBCUT SCH (15:29)
[2018-07-23 16:04] LABS: Troponin I 0.05 ng/mL (<0.04)
[2018-07-23] MEDS ORDERED: Potassium Chlor TAB* 20 MEQ TAB.ER PO ONE (17:10)
[2018-07-24] MEDS: Furosemide IV* 10 MG/ML VIAL (40 MG) IV SCH ×2 (05:14→14:06)
[2018-07-24 06:21] LABS: Hematocrit 31 % (35-47); Hemoglobin 9.8 g/dl (12.0-16.0); Mean Corpuscular HGB Conc 32 g/dl (31-36); Mean Corpuscular Hemoglobin 25 pg (27-31); Mean Corpuscular Volume 79 fL (80-97); Mean Platelet Volume 8.5 fL (7.4-10.4); Platelet Count 288 10^3/ul (150-450); Red Blood Count 3.88 10^6/ul (4.00-5.40); Red Cell Distribution Width 18 % (10.5-15); White Blood Count 12.8 10^3/ul (3.5-10.8)
[2018-07-24 06:41] LABS: BUN/Creatinine Ratio 20.3 (8-20); Calcium 9.3 mg/dL (8.6-10.3); EGFR African American 49.6 (>60); Potassium 3.5 mmol/L (3.5-5.0)
[2018-07-24] MEDS: Carvedilol TAB* 3.125 MG PO SCH ×2 (09:19→20:36)
[2018-07-24] MEDS: Aspirin 81 mg CHEW TAB* 81 MG TAB.CHEW PO SCH (09:19)
[2018-07-24] MEDS: Spironolactone TAB* 25 MG PO SCH (09:19)
[2018-07-24] MEDS: Senna TAB PO SCH (09:19)
[2018-07-24] MEDS: Iron Sucrose* 200 MG in NS 0.9% 100 ML* 100 ML IVPB SCH (09:20)
[2018-07-24] MEDS: Losartan TAB* 25 MG PO SCH ×2 (09:20→20:35)
[2018-07-24] MEDS ORDERED: KCL 20 MEQ/100 ML IVPREMIX* 20 MEQ/100 ML BAG IV ONE (13:28)
[2018-07-24] MEDS ORDERED: Magnesium Sulfate 1 GM IV* 1 GM/100 ML BAG IV ONE (13:29)
[2018-07-24] MEDS: Enoxaparin(*) 40 MG/0.4 ML SYR SUBCUT SCH (14:05)
--- NOTE | 2018-07-24 15:10 | PN ---
Subjective Date of Service: 07/24/18 Interval History: HD #4 on 07/24 55 yo F with PMH HTN, BMI >50, newly dx HFrEF 25% (thought to be NICM). No overnight events. VSS,-though ectopy NSVT x 4 to 5 beats overnight, off O2 still has c/o abdominal pain, no BM, good UOP -490 for 24 hours, labs stable, mild leukocytosis, trending down. K 3.5, will continue agressive repletion This afternoon seen, she is feeling much better, feels swelling in legs is going down, has more energy, walking around the floor. Still with sig UOP. No CP , no SOB, no or MSK complaints. Mild cough, but much improved. Has had some stomach pain, likely combo of constipation and perhaps mild edema, willing to start bowel regimen. Objective Active Medications: Acetaminophen (Tylenol Tab*) 650 mg PO Q4H PRN PRN Reason: FEVER/PAIN Last Admin: 07/21/18 23:52 Dose: 650 mg Al Hydrox/Mg Hydrox/Simethicone (Maalox Plus*) 30 ml PO Q4H PRN PRN Reason: INDIGESTION Last Admin: 07/21/18 17:53 Dose: 30 ml Aspirin (Aspirin 81 Mg Chew Tab*) 81 mg PO DAILY [facility] Last Admin: 07/24/18 09:19 Dose: 81 mg Benzonatate (Tessalon Cap*) 100 mg PO BID PRN PRN Reason: COUGH Last Admin: 07/23/18 09:47 Dose: 100 mg Carvedilol (Coreg Tab*) 3.125 mg PO BID [facility] Last Admin: 07/24/18 09:19 Dose: 3.125 mg Docusate Sodium (Colace Cap*) 100 mg PO DAILY PRN PRN Reason: CONSTIPATION Enoxaparin Sodium (Lovenox(*)) 40 mg SUBCUT Q24H [facility] Last Admin: 07/24/18 14:05 Dose: 40 mg Furosemide (Lasix Iv*) 40 mg IV 0600,1500 [facility] Last Admin: 07/24/18 14:06 Dose: 40 mg Potassium Chloride (Potassium Chloride 20 Meq/100 Ml Ivpremix*) 20 meq in 100 mls @ 50 mls/hr IV ONCE ONE Stop: 07/24/18 15:27 Last Admin: 07/24/18 14:51 Dose: 50 mls/hr Losartan Potassium (Cozaar Tab*) 50 mg PO BID [facility] Last Admin: 07/24/18 09:20 Dose: 50 mg Melatonin (Melatonin) 3 mg PO BEDTIME PRN; Protocol PRN Reason: SLEEP Last Admin: 07/21/18 21:20 Dose: 3 mg Ondansetron HCl (Zofran Inj*) 4 mg IV Q4H PRN PRN Reason: NAUSEA/VOMITING Polyethylene Glycol/Electrolytes (Miralax*) 17 gm PO DAILY PRN PRN Reason: CONSTIPATION Senna (Senokot Tab*) 1 tab PO DAILY [facility] Last Admin: 07/24/18 09:19 Dose: 1 tab Spironolactone (Aldactone Tab*) 25 mg PO DAILY [facility] Last Admin: 07/24/18 09:19 Dose: 25 mg Tramadol HCl (Ultram*) 50 mg PO Q12H PRN PRN Reason: DISCOMFORT Last Admin: 07/23/18 09:58 Dose: 50 mg Vital Signs - 8 hr 07/24/18 07/24/18 08:00 11:56 Temperature 98.2 F Pulse Rate 73 Respiratory 16 20 Rate Blood Pressure 133/93 (mmHg) O2 Sat by Pulse 100 Oximetry Oxygen Devices in Use Now: None Appearance: Pleasant woman in NAD Ears/Nose/Mouth/Throat: NL Teeth, Lips, Gums Neck: NL Appearance and Movements; NL JVP Respiratory: Clear to Auscultation Cardiovascular: NL Sounds; No Murmurs; No JVD, RRR Lymphatic: No Cervical Adenopathy Extremities: - - 1+ pitting edmea Skin: No Rash or Ulcers Neurological: Alert and Oriented x 3 Result Diagrams: 07/24/18 05:59 07/24/18 05:59 Assess/Plan/Problems-Billing 58W with obesity, HTN, chronic cough, presents with progressive dyspnea and LE edema. She was found to be hypertensive and with CXR showing pulmonary edema. TTE with new HFrEF 25% thought to be NICM 2/2 viral etiology or HTN - Patient Problems (1) Heart failure with reduced ejection fraction Current Visit: Yes Status: Acute Code(s): I50.20 - UNSPECIFIED SYSTOLIC ( CONGESTIVE) HEART FAILURE SNOMED Code(s): 998648019 Comment: New diagnosis and TTE with wall motion abnormalities not typical for ischemic cardiomyopathy, still could be from ischemic heart disease and/or known history of severe hypertension. Idiopathic common as well but dx of exclusion. A1c 5.8%, TSH wnl. - appreciate cardiology recs - cont on IV furosemide 40mg bid - monitor BMP and replete 'lytes prn - NSVT 07/24, continue with IV Mag and IV K - HF regimen: increase losartan to 25mg bid; starting spironolactone 25mg daily (should help with low K) - consider beta-edgardo when closer to euvolemic - stricts I&Os and daily weights - cont ASA for primary ppx, will consider statin as well based off ASCVD risk (2) Hypertension Current Visit: Yes Status: Acute Code(s): I10 - ESSENTIAL (PRIMARY) HYPERTENSION SNOMED Code(s): 00531414 Comment: BP 201/144 on presentation - could have componend of HTNsive emergency. - HFrEF regimen: losartan and spironolactone as above (3) Anemia Current Visit: Yes Status: Acute Code(s): D64.9 - ANEMIA, UNSPECIFIED SNOMED Code(s): 699298091 Comment: Microcytic with low iron and high TIBC. Also with high ferritin but could be in setting of acute illness (acute phase reactant). - will top up with IV iron while admitted - should have daily PO iron on discharge - age appropriate cancer screening as outpatient (4) Chronic cough Current Visit: Yes Status: Acute Code(s): R05 - COUGH SNOMED Code(s): 73521899 Comment: Starting around 2015. Could be from ALAYNA-I. Recently was trialed on PPI but wanted to stop - had no GI symptoms. - replace ALAYNA-I with ARB - Improved sig today (5) Obesity (BMI 30-39.9) Current Visit: Yes Status: Acute Code(s): E66.9 - OBESITY, UNSPECIFIED SNOMED Code(s): 340012442 Comment: - diet and exercise encouraged (6) Abdominal pain Current Visit: Yes Status: Acute Code(s): R10.9 - UNSPECIFIED ABDOMINAL PAIN SNOMED Code(s): 25617208 Comment: Unclear etiology, has been rec'g Tramadol, will allow BID PRN, will start bowel regimen given IV iron and no BM -Senna Docusate, Miralax (7) DVT prophylaxis Current Visit: Yes Status: Acute Code(s): YXL5987 - SNOMED Code(s): 914943496 Comment: cont LMWH subq daily, CrCl > 30 (8) Full code status Current Visit: Yes Status: Acute Code(s): Z78.9 - OTHER SPECIFIED HEALTH STATUS SNOMED Code(s): 766492941 Status and Disposition: Inpatient, possibly repeat TTE Tues for eval of life vest
[2018-07-25 06:52] LABS: BUN/Creatinine Ratio 20.2 (8-20); Calcium 9.4 mg/dL (8.6-10.3); EGFR African American 56.4 (>60); EGFR Non-African American 46.6 (>60); Magnesium 1.9 mg/dL (1.9-2.7); Potassium 3.5 mmol/L (3.5-5.0)
[2018-07-25] MEDS: Senna TAB PO SCH (07:41)
[2018-07-25] MEDS: Carvedilol TAB* 3.125 MG PO SCH ×2 (07:42→21:17)
[2018-07-25] MEDS: Spironolactone TAB* 25 MG PO SCH (07:42)
[2018-07-25] MEDS: Losartan TAB* 25 MG PO SCH ×2 (07:42→21:17)
[2018-07-25] MEDS: Furosemide TAB* 20 MG PO SCH (07:42)
[2018-07-25] MEDS: Aspirin 81 mg CHEW TAB* 81 MG TAB.CHEW PO SCH (07:42)
[2018-07-25] MEDS ORDERED: Furosemide IV* 10 MG/ML VIAL (40 MG) IV SCH (09:00)
[2018-07-25] MEDS: Enoxaparin(*) 40 MG/0.4 ML SYR SUBCUT SCH (15:06)
--- NOTE | 2018-07-25 17:33 | PN ---
Subjective Date of Service: 07/25/18 Interval History: HOSPITALIST PROGRESS NOTE Patient seen and examined at bedside. Case reviewed and d/e Guerita Patino RN. She offers no new complaints. Family History: Unchanged from Admission Social History: Unchanged from Admission Past Medical History: Unchanged from Admission Objective Active Medications: Acetaminophen (Tylenol Tab*) 650 mg PO Q4H PRN PRN Reason: FEVER/PAIN Last Admin: 07/21/18 23:52 Dose: 650 mg Al Hydrox/Mg Hydrox/Simethicone (Maalox Plus*) 30 ml PO Q4H PRN PRN Reason: INDIGESTION Last Admin: 07/21/18 17:53 Dose: 30 ml Aspirin (Aspirin 81 Mg Chew Tab*) 81 mg PO DAILY [facility] Last Admin: 07/25/18 07:42 Dose: 81 mg Benzonatate (Tessalon Cap*) 100 mg PO BID PRN PRN Reason: COUGH Last Admin: 07/23/18 09:47 Dose: 100 mg Carvedilol (Coreg Tab*) 3.125 mg PO BID [facility] Last Admin: 07/25/18 07:42 Dose: 3.125 mg Docusate Sodium (Colace Cap*) 100 mg PO DAILY PRN PRN Reason: CONSTIPATION Enoxaparin Sodium (Lovenox(*)) 40 mg SUBCUT Q24H [facility] Last Admin: 07/25/18 15:06 Dose: 40 mg Furosemide (Lasix Tab*) 20 mg PO DAILY [facility] Last Admin: 07/25/18 07:42 Dose: 20 mg Losartan Potassium (Cozaar Tab*) 50 mg PO BID [facility] Last Admin: 07/25/18 07:42 Dose: 50 mg Melatonin (Melatonin) 3 mg PO BEDTIME PRN; Protocol PRN Reason: SLEEP Last Admin: 07/21/18 21:20 Dose: 3 mg Ondansetron HCl (Zofran Inj*) 4 mg IV Q4H PRN PRN Reason: NAUSEA/VOMITING Polyethylene Glycol/Electrolytes (Miralax*) 17 gm PO DAILY PRN PRN Reason: CONSTIPATION Senna (Senokot Tab*) 1 tab PO DAILY [facility] Last Admin: 07/25/18 07:41 Dose: 1 tab Spironolactone (Aldactone Tab*) 25 mg PO DAILY [facility] Last Admin: 07/25/18 07:42 Dose: 25 mg Tramadol HCl (Ultram*) 50 mg PO Q12H PRN PRN Reason: DISCOMFORT Last Admin: 07/23/18 09:58 Dose: 50 mg Vital Signs - 8 hr 07/25/18 07/25/18 10:55 15:25 Temperature 97.2 F 98.1 F Pulse Rate 64 67 Respiratory 18 16 Rate Blood Pressure 122/81 146/93 (mmHg) O2 Sat by Pulse 100 100 Oximetry Oxygen Devices in Use Now: None Appearance: Pleasant lady lying in bed in NAD Eyes: No Scleral Icterus Ears/Nose/Mouth/Throat: Mucous Membranes Moist Neck: Trachea Midline Respiratory: Symmetrical Chest Expansion and Respiratory Effort, Clear to Auscultation Cardiovascular: RRR - Normal S1 and S2, RRR Extremities: - - Moderate to severe pitting edema Neurological: Alert and Oriented x 3, NL Muscle Strength and Tone Result Diagrams: 07/24/18 05:59 07/25/18 06:13 Assess/Plan/Problems-Billing Assessment: 58yo Fwith obesity, HTN, chronic cough, presents with progressive dyspnea and LE edema. She was found to be hypertensive and with CXR showing pulmonary edema. TTE with new HFrEF 25% thought to be NICM 2/2 viral etiology or HTN - Patient Problems (1) Heart failure with reduced ejection fraction Comment: - Acute systolic CHF exacerbation. - New diagnosis and TTE with wall motion abnormalities not typical for ischemic cardiomyopathy, still could be from ischemic heart disease and/or known history of severe hypertension. A1c 5.8%, TSH wnl. - appreciate cardiology recs - Continue Furosemide - 8 beats of Vtach earlier today - K and Mg WNL - awaiting Life Vest. - Continue Carvedilol, losartan, spironolactone - stricts I&Os and daily weights - Plan to f/u with Dr Cui as outpatient to complete ischemic w/u, f/u EF, and discuss AICD. (2) Hypertension Comment: - Better controlled - continue losartan, carvedilol, and spironolactone (3) Anemia Comment: Microcytic with low iron and high TIBC. Also with high ferritin but could be in setting of acute illness (acute phase reactant). (4) Chronic cough Comment: Starting around 2015. Could be from ALAYNA-I. Recently was trialed on PPI but wanted to stop - had no GI symptoms. - Seems to be improved on ARBs (5) DVT prophylaxis Comment: Mira (6) Full code status Status and Disposition: Inpatient.
[2018-07-26] MEDS: Benzonatate CAP* 100 MG PO PRN (00:39)
[2018-07-26] MEDS: Carvedilol TAB* 3.125 MG PO SCH ×2 (08:28→21:10)
[2018-07-26] MEDS: Furosemide TAB* 20 MG PO SCH (08:28)
[2018-07-26] MEDS: Spironolactone TAB* 25 MG PO SCH (08:28)
[2018-07-26] MEDS: Losartan TAB* 25 MG PO SCH ×2 (08:29→21:10)
[2018-07-26] MEDS: Aspirin 81 mg CHEW TAB* 81 MG TAB.CHEW PO SCH (08:30)
[2018-07-26] MEDS: Senna TAB PO SCH (08:30)
--- NOTE | 2018-07-26 14:18 | PN ---
Subjective Date of Service: 07/26/18 Interval History: No more cough. No SOB. Had cough 2 years. Family History: Unchanged from Admission Social History: Unchanged from Admission Past Medical History: Unchanged from Admission Objective Active Medications: Acetaminophen (Tylenol Tab*) 650 mg PO Q4H PRN PRN Reason: FEVER/PAIN Last Admin: 07/21/18 23:52 Dose: 650 mg Al Hydrox/Mg Hydrox/Simethicone (Maalox Plus*) 30 ml PO Q4H PRN PRN Reason: INDIGESTION Last Admin: 07/21/18 17:53 Dose: 30 ml Aspirin (Aspirin 81 Mg Chew Tab*) 81 mg PO DAILY [facility] Last Admin: 07/26/18 08:30 Dose: 81 mg Benzonatate (Tessalon Cap*) 100 mg PO BID PRN PRN Reason: COUGH Last Admin: 07/26/18 00:39 Dose: 100 mg Carvedilol (Coreg Tab*) 3.125 mg PO BID [facility] Last Admin: 07/26/18 08:28 Dose: 3.125 mg Docusate Sodium (Colace Cap*) 100 mg PO DAILY PRN PRN Reason: CONSTIPATION Enoxaparin Sodium (Lovenox(*)) 40 mg SUBCUT Q24H [facility] Last Admin: 07/25/18 15:06 Dose: 40 mg Furosemide (Lasix Tab*) 20 mg PO DAILY [facility] Last Admin: 07/26/18 08:28 Dose: 20 mg Losartan Potassium (Cozaar Tab*) 50 mg PO BID [facility] Last Admin: 07/26/18 08:29 Dose: 50 mg Melatonin (Melatonin) 3 mg PO BEDTIME PRN; Protocol PRN Reason: SLEEP Last Admin: 07/21/18 21:20 Dose: 3 mg Ondansetron HCl (Zofran Inj*) 4 mg IV Q4H PRN PRN Reason: NAUSEA/VOMITING Polyethylene Glycol/Electrolytes (Miralax*) 17 gm PO DAILY PRN PRN Reason: CONSTIPATION Senna (Senokot Tab*) 1 tab PO DAILY [facility] Last Admin: 07/26/18 08:30 Dose: 1 tab Spironolactone (Aldactone Tab*) 25 mg PO DAILY [facility] Last Admin: 07/26/18 08:28 Dose: 25 mg Tramadol HCl (Ultram*) 50 mg PO Q12H PRN PRN Reason: DISCOMFORT Last Admin: 07/23/18 09:58 Dose: 50 mg Vital Signs - 8 hr 07/26/18 07/26/18 07/26/18 07:23 08:00 11:38 Temperature 97.2 F 97.9 F Pulse Rate 75 73 Respiratory 16 16 16 Rate Blood Pressure 148/90 144/85 (mmHg) O2 Sat by Pulse 98 99 Oximetry Oxygen Devices in Use Now: None Appearance: Alert, sitting up in bed. In good spirits. Looks comfortable. Neck: NL Appearance and Movements; NL JVP, No Thyroid Enlargement, Masses Respiratory: Symmetrical Chest Expansion and Respiratory Effort, Clear to Auscultation, Clear to Percussion Cardiovascular: NL Sounds; No Murmurs; No JVD, RRR, No Edema, - Extremities: No Edema, No Clubbing, Cyanosis, - Skin: No Rash or Ulcers, No Nodules or Sclerosis, - Neurological: Alert and Oriented x 3, NL Sensation Result Diagrams: 07/24/18 05:59 07/25/18 06:13 Assess/Plan/Problems-Billing Assessment: 58yo Fwith obesity, HTN, chronic cough, presents with progressive dyspnea and LE edema. She was found to be hypertensive and with CXR showing pulmonary edema. TTE with new HFrEF 25% thought to be NICM 2/2 viral etiology or HTN - Patient Problems (1) Heart failure with reduced ejection fraction Current Visit: Yes Status: Acute Code(s): I50.20 - UNSPECIFIED SYSTOLIC ( CONGESTIVE) HEART FAILURE SNOMED Code(s): 389402161 Comment: - Acute systolic CHF exacerbation. - New diagnosis and TTE with wall motion abnormalities not typical for ischemic cardiomyopathy, still could be from ischemic heart disease and/or known history of severe hypertension. A1c 5.8%, TSH wnl. Continue losartan, carvedilol, spironolactone. - Continue Furosemide - 8 beats of Vtach earlier today - K and Mg WNL - awaiting Life Vest. - Continue Carvedilol, losartan, spironolactone - stricts I&Os and daily weights - Plan to f/u with Dr Cui as outpatient to complete ischemic w/u, f/u EF, and discuss AICD. (2) Hypertension Current Visit: Yes Status: Acute Code(s): I10 - ESSENTIAL (PRIMARY) HYPERTENSION SNOMED Code(s): 18525796 Comment: - Better controlled - continue losartan, carvedilol, and spironolactone (3) Anemia Current Visit: Yes Status: Acute Code(s): D64.9 - ANEMIA, UNSPECIFIED SNOMED Code(s): 142047564 Comment: Microcytic with low iron and high TIBC. Also with high ferritin but could be in setting of acute illness (acute phase reactant). Soluble transferrin receptor ordered for 07/27. (4) Chronic cough Current Visit: Yes Status: Acute Code(s): R05 - COUGH SNOMED Code(s): 53439806 Comment: Starting around 2016. Could be from ALAYNA-I. Recently was trialed on PPI but wanted to stop - had no GI symptoms. - Seems to be improved on ARBs. Lisinopril listed as allergy. Status and Disposition: Inpatient.
[2018-07-26] MEDS: Enoxaparin(*) 40 MG/0.4 ML SYR SUBCUT SCH (17:30)
[2018-07-26] MEDS: Melatonin 3 MG TAB PO PRN (21:28)
[2018-07-27] MEDS: Senna TAB PO SCH (07:54)
[2018-07-27] MEDS: Furosemide TAB* 20 MG PO SCH (07:54)
[2018-07-27] MEDS: Losartan TAB* 25 MG PO SCH ×2 (07:54→20:09)
[2018-07-27] MEDS: Aspirin 81 mg CHEW TAB* 81 MG TAB.CHEW PO SCH (07:54)
[2018-07-27] MEDS: Carvedilol TAB* 3.125 MG PO SCH ×2 (07:54→20:09)
[2018-07-27] MEDS: Spironolactone TAB* 25 MG PO SCH (07:54)
--- NOTE | 2018-07-27 11:57 | PN ---
Subjective Date of Service: 07/27/18 Interval History: No SOB, no MENDOZA, no chest pain, cough. Family History: Unchanged from Admission Social History: Unchanged from Admission Past Medical History: Unchanged from Admission Objective Active Medications: Acetaminophen (Tylenol Tab*) 650 mg PO Q4H PRN PRN Reason: FEVER/PAIN Last Admin: 07/21/18 23:52 Dose: 650 mg Al Hydrox/Mg Hydrox/Simethicone (Maalox Plus*) 30 ml PO Q4H PRN PRN Reason: INDIGESTION Last Admin: 07/21/18 17:53 Dose: 30 ml Aspirin (Aspirin 81 Mg Chew Tab*) 81 mg PO DAILY [facility] Last Admin: 07/27/18 07:54 Dose: 81 mg Benzonatate (Tessalon Cap*) 100 mg PO BID PRN PRN Reason: COUGH Last Admin: 07/26/18 00:39 Dose: 100 mg Carvedilol (Coreg Tab*) 3.125 mg PO BID [facility] Last Admin: 07/27/18 07:54 Dose: 3.125 mg Docusate Sodium (Colace Cap*) 100 mg PO DAILY PRN PRN Reason: CONSTIPATION Enoxaparin Sodium (Lovenox(*)) 40 mg SUBCUT Q24H [facility] Last Admin: 07/26/18 17:30 Dose: 40 mg Furosemide (Lasix Tab*) 20 mg PO DAILY [facility] Last Admin: 07/27/18 07:54 Dose: 20 mg Losartan Potassium (Cozaar Tab*) 50 mg PO BID [facility] Last Admin: 07/27/18 07:54 Dose: 50 mg Melatonin (Melatonin) 3 mg PO BEDTIME PRN; Protocol PRN Reason: SLEEP Last Admin: 07/26/18 21:28 Dose: 3 mg Ondansetron HCl (Zofran Inj*) 4 mg IV Q4H PRN PRN Reason: NAUSEA/VOMITING Polyethylene Glycol/Electrolytes (Miralax*) 17 gm PO DAILY PRN PRN Reason: CONSTIPATION Senna (Senokot Tab*) 1 tab PO DAILY [facility] Last Admin: 07/27/18 07:54 Dose: 1 tab Spironolactone (Aldactone Tab*) 25 mg PO DAILY [facility] Last Admin: 07/27/18 07:54 Dose: 25 mg Tramadol HCl (Ultram*) 50 mg PO Q12H PRN PRN Reason: DISCOMFORT Last Admin: 07/23/18 09:58 Dose: 50 mg Vital Signs - 8 hr 07/27/18 07/27/18 07:44 08:00 Temperature 98.2 F Pulse Rate 66 Respiratory 22 18 Rate Blood Pressure 133/85 (mmHg) O2 Sat by Pulse 100 Oximetry Oxygen Devices in Use Now: None Appearance: Alert, in a chair. In good spirits. Looks comfortable. Eyes: No Scleral Icterus Respiratory: Symmetrical Chest Expansion and Respiratory Effort, Clear to Auscultation, Clear to Percussion Cardiovascular: NL Sounds; No Murmurs; No JVD, RRR, No Edema, - Extremities: No Clubbing, Cyanosis, - - 1+ edema BL Skin: No Rash or Ulcers, No Nodules or Sclerosis, - Neurological: Alert and Oriented x 3, NL Sensation Result Diagrams: 07/24/18 05:59 07/25/18 06:13 Assess/Plan/Problems-Billing Assessment: 58yo Fwith obesity, HTN, chronic cough, presents with progressive dyspnea and LE edema. She was found to be hypertensive and with CXR showing pulmonary edema. TTE with new HFrEF 25% thought to be NICM 2/2 viral etiology or HTN - Patient Problems (1) Heart failure with reduced ejection fraction Current Visit: Yes Status: Acute Code(s): I50.20 - UNSPECIFIED SYSTOLIC ( CONGESTIVE) HEART FAILURE SNOMED Code(s): 616854811 Comment: - Acute systolic CHF exacerbation, improved. New diagnosis. Continue losartan, carvedilol, spironolactone, furosemide - 8 beats of Vtach earlier today - K and Mg WNL - awaiting Life Vest. - strict I&Os and daily weights - Plan to f/u with Dr Cui as outpatient to complete ischemic w/u, f/u EF, and discuss AICD. NYHA Functional Capacity I, Objective Assessment A. (2) Hypertension Current Visit: Yes Status: Acute Code(s): I10 - ESSENTIAL (PRIMARY) HYPERTENSION SNOMED Code(s): 95291291 Comment: - Better controlled - continue losartan, carvedilol, and spironolactone (3) Anemia Current Visit: Yes Status: Acute Code(s): D64.9 - ANEMIA, UNSPECIFIED SNOMED Code(s): 095904358 Comment: Microcytic with low iron and high TIBC. Also with high ferritin but could be in setting of acute illness (acute phase reactant). Soluble transferrin receptor sent 07/27. (4) Chronic cough Current Visit: Yes Status: Acute Code(s): R05 - COUGH SNOMED Code(s): 91081687 Comment: Starting around 2015. Could be from ALAYNA-I. Recently was trialed on PPI but wanted to stop - had no GI symptoms. - Seems to be improved on ARBs. Lisinopril listed as allergy. Status and Disposition: Inpatient.
[2018-07-27] MEDS: Enoxaparin(*) 40 MG/0.4 ML SYR SUBCUT SCH (13:56)
[2018-07-28 06:29] LABS: BUN/Creatinine Ratio 12.8 (8-20); Calcium 9.2 mg/dL (8.6-10.3); EGFR African American 62.4 (>60); EGFR Non-African American 51.6 (>60); Potassium 4.1 mmol/L (3.5-5.0)
[2018-07-28] MEDS: Spironolactone TAB* 25 MG PO SCH (08:46)
[2018-07-28] MEDS: Carvedilol TAB* 3.125 MG PO SCH ×2 (08:47→21:57)
[2018-07-28] MEDS: Losartan TAB* 25 MG PO SCH ×2 (08:47→21:57)
[2018-07-28] MEDS: Furosemide TAB* 20 MG PO SCH (08:47)
[2018-07-28] MEDS: Senna TAB PO SCH (08:47)
[2018-07-28] MEDS: Aspirin 81 mg CHEW TAB* 81 MG TAB.CHEW PO SCH (08:47)
--- NOTE | 2018-07-28 12:41 | PN ---
Subjective Date of Service: 07/28/18 Interval History: Walks in halleasily. No chest pain, cough, SOB. No new c/o. Family History: Unchanged from Admission Social History: Unchanged from Admission Past Medical History: Unchanged from Admission Objective Active Medications: Acetaminophen (Tylenol Tab*) 650 mg PO Q4H PRN PRN Reason: FEVER/PAIN Last Admin: 07/21/18 23:52 Dose: 650 mg Al Hydrox/Mg Hydrox/Simethicone (Maalox Plus*) 30 ml PO Q4H PRN PRN Reason: INDIGESTION Last Admin: 07/21/18 17:53 Dose: 30 ml Aspirin (Aspirin 81 Mg Chew Tab*) 81 mg PO DAILY [facility] Last Admin: 07/28/18 08:47 Dose: 81 mg Benzonatate (Tessalon Cap*) 100 mg PO BID PRN PRN Reason: COUGH Last Admin: 07/26/18 00:39 Dose: 100 mg Carvedilol (Coreg Tab*) 3.125 mg PO BID [facility] Last Admin: 07/28/18 08:47 Dose: 3.125 mg Docusate Sodium (Colace Cap*) 100 mg PO DAILY PRN PRN Reason: CONSTIPATION Enoxaparin Sodium (Lovenox(*)) 40 mg SUBCUT Q24H [facility] Last Admin: 07/27/18 13:56 Dose: 40 mg Furosemide (Lasix Tab*) 20 mg PO DAILY [facility] Last Admin: 07/28/18 08:47 Dose: 20 mg Losartan Potassium (Cozaar Tab*) 50 mg PO BID [facility] Last Admin: 07/28/18 08:47 Dose: 50 mg Ondansetron HCl (Zofran Inj*) 4 mg IV Q4H PRN PRN Reason: NAUSEA/VOMITING Polyethylene Glycol/Electrolytes (Miralax*) 17 gm PO DAILY PRN PRN Reason: CONSTIPATION Senna (Senokot Tab*) 1 tab PO DAILY [facility] Last Admin: 07/28/18 08:47 Dose: 1 tab Spironolactone (Aldactone Tab*) 25 mg PO DAILY [facility] Last Admin: 07/28/18 08:46 Dose: 25 mg Tramadol HCl (Ultram*) 50 mg PO Q12H PRN PRN Reason: DISCOMFORT Last Admin: 07/23/18 09:58 Dose: 50 mg Vital Signs - 8 hr 07/28/18 07/28/18 07/28/18 07:59 08:00 11:16 Temperature 98.3 F 98.1 F Pulse Rate 72 78 Respiratory 14 18 14 Rate Blood Pressure 139/97 144/84 (mmHg) O2 Sat by Pulse 100 99 Oximetry Oxygen Devices in Use Now: None Appearance: Alert, in a chair. In fair spirits. Looks comfortable. Eyes: No Scleral Icterus Extremities: No Edema, No Clubbing, Cyanosis, - Skin: No Rash or Ulcers, No Nodules or Sclerosis, - Neurological: Alert and Oriented x 3, NL Sensation Result Diagrams: 07/24/18 05:59 07/28/18 05:53 Assess/Plan/Problems-Billing Assessment: 58yo Fwith obesity, HTN, chronic cough, presents with progressive dyspnea and LE edema. She was found to be hypertensive and with CXR showing pulmonary edema. TTE with new HFrEF 25% thought to be NICM 2/2 viral etiology or HTN - Patient Problems (1) Heart failure with reduced ejection fraction Current Visit: Yes Status: Acute Code(s): I50.20 - UNSPECIFIED SYSTOLIC ( CONGESTIVE) HEART FAILURE SNOMED Code(s): 696940188 Comment: - Acute systolic CHF exacerbation, improved. New diagnosis. Continue losartan, carvedilol, spironolactone, furosemide - 8 beats of Vtach earlier - K and Mg WNL - awaiting Life Vest. K+ 4.1 07/28/18. - strict I&Os and daily weights - Plan to f/u with Dr Cui as outpatient to complete ischemic w/u, f/u EF, and discuss AICD. NYHA Functional Capacity I, Objective Assessment A. (2) Hypertension Current Visit: Yes Status: Acute Code(s): I10 - ESSENTIAL (PRIMARY) HYPERTENSION SNOMED Code(s): 65856554 Comment: Increase carvedilol to 6.25 mg bid 315 PM, continue losartan, and spironolactone (3) Anemia Current Visit: Yes Status: Acute Code(s): D64.9 - ANEMIA, UNSPECIFIED SNOMED Code(s): 378992071 Comment: Microcytic with low iron and high TIBC. Also with high ferritin but could be in setting of acute illness (acute phase reactant). Soluble transferrin receptor sent 07/27. (4) Chronic cough Current Visit: Yes Status: Acute Code(s): R05 - COUGH SNOMED Code(s): 20112625 Comment: Starting around 2015. Could be from ALAYNA-I. Recently was trialed on PPI but wanted to stop - had no GI symptoms. - Seems to be improved on ARBs. Lisinopril listed as allergy. Status and Disposition: Inpatient.
[2018-07-28] MEDS: Enoxaparin(*) 40 MG/0.4 ML SYR SUBCUT SCH (14:26)
[2018-07-28] MEDS: Benzonatate CAP* 100 MG PO PRN (22:04)
[2018-07-29] MEDS: Senna TAB PO SCH (09:36)
[2018-07-29] MEDS: Carvedilol TAB* 3.125 MG PO SCH (09:36)
[2018-07-29] MEDS: Spironolactone TAB* 25 MG PO SCH (09:36)
[2018-07-29] MEDS: Furosemide TAB* 20 MG PO SCH (09:36)
[2018-07-29] MEDS: Losartan TAB* 25 MG PO SCH ×2 (09:37→20:54)
[2018-07-29] MEDS: Aspirin 81 mg CHEW TAB* 81 MG TAB.CHEW PO SCH (09:37)
[2018-07-29] MEDS ORDERED: Iron Sucrose* 200 MG in NS 0.9% 100 ML* 100 ML IVPB ONE (13:53)
--- NOTE | 2018-07-29 13:54 | PN ---
Subjective Date of Service: 07/29/18 Interval History: No physical c/o. Walks in halls. She hates being in the hospital, also missing work. Family History: Unchanged from Admission Social History: Unchanged from Admission Past Medical History: Unchanged from Admission Objective Active Medications: Acetaminophen (Tylenol Tab*) 650 mg PO Q4H PRN PRN Reason: FEVER/PAIN Last Admin: 07/21/18 23:52 Dose: 650 mg Al Hydrox/Mg Hydrox/Simethicone (Maalox Plus*) 30 ml PO Q4H PRN PRN Reason: INDIGESTION Last Admin: 07/21/18 17:53 Dose: 30 ml Aspirin (Aspirin 81 Mg Chew Tab*) 81 mg PO DAILY [facility] Last Admin: 07/29/18 09:37 Dose: 81 mg Benzonatate (Tessalon Cap*) 100 mg PO BID PRN PRN Reason: COUGH Last Admin: 07/28/18 22:04 Dose: 100 mg Carvedilol (Coreg Tab*) 12.5 mg PO BID [facility] Docusate Sodium (Colace Cap*) 100 mg PO DAILY PRN PRN Reason: CONSTIPATION Enoxaparin Sodium (Lovenox(*)) 40 mg SUBCUT Q24H [facility] Last Admin: 07/28/18 14:26 Dose: 40 mg Furosemide (Lasix Tab*) 20 mg PO DAILY [facility] Last Admin: 07/29/18 09:36 Dose: 20 mg Losartan Potassium (Cozaar Tab*) 50 mg PO BID [facility] Last Admin: 07/29/18 09:37 Dose: 50 mg Ondansetron HCl (Zofran Inj*) 4 mg IV Q4H PRN PRN Reason: NAUSEA/VOMITING Polyethylene Glycol/Electrolytes (Miralax*) 17 gm PO DAILY PRN PRN Reason: CONSTIPATION Senna (Senokot Tab*) 1 tab PO DAILY [facility] Last Admin: 07/29/18 09:36 Dose: 1 tab Spironolactone (Aldactone Tab*) 25 mg PO DAILY [facility] Last Admin: 07/29/18 09:36 Dose: 25 mg Tramadol HCl (Ultram*) 50 mg PO Q12H PRN PRN Reason: DISCOMFORT Last Admin: 07/23/18 09:58 Dose: 50 mg Vital Signs - 8 hr 07/29/18 07:42 Temperature 98.1 F Pulse Rate 79 Respiratory 16 Rate Blood Pressure 144/95 (mmHg) O2 Sat by Pulse 100 Oximetry Oxygen Devices in Use Now: None Appearance: Alert, in a chair. In poor spirits. Looks physically comfortable. Eyes: No Scleral Icterus Respiratory: Symmetrical Chest Expansion and Respiratory Effort, Clear to Auscultation, Clear to Percussion Cardiovascular: NL Sounds; No Murmurs; No JVD, RRR, No Edema, - Extremities: No Edema, No Clubbing, Cyanosis, - Skin: No Rash or Ulcers, No Nodules or Sclerosis, - Neurological: Alert and Oriented x 3, NL Sensation Result Diagrams: 07/24/18 05:59 07/28/18 05:53 Assess/Plan/Problems-Billing Assessment: 58yo Fwith obesity, HTN, chronic cough, presents with progressive dyspnea and LE edema. She was found to be hypertensive and with CXR showing pulmonary edema. TTE with new HFrEF 25% thought to be NICM 2/2 viral etiology or HTN - Patient Problems (1) Heart failure with reduced ejection fraction Current Visit: Yes Status: Acute Code(s): I50.20 - UNSPECIFIED SYSTOLIC ( CONGESTIVE) HEART FAILURE SNOMED Code(s): 998311821 Comment: - Acute systolic CHF exacerbation, improved. New diagnosis. Continue losartan, carvedilol, spironolactone, furosemide - 8 beats of Vtach earlier - K and Mg WNL - awaiting Life Vest. K+ 4.1 07/28/18. - strict I&Os and daily weights - Plan to f/u with Dr Cui as outpatient to complete ischemic w/u, f/u EF, and discuss AICD. NYHA Functional Capacity I, Objective Assessment A. (2) Hypertension Current Visit: Yes Status: Acute Code(s): I10 - ESSENTIAL (PRIMARY) HYPERTENSION SNOMED Code(s): 57472053 Comment: Increase carvedilol to 12.5 mg bid 16 PM, continue losartan, and spironolactone. (3) Anemia Current Visit: Yes Status: Acute Code(s): D64.9 - ANEMIA, UNSPECIFIED SNOMED Code(s): 159907259 Comment: Microcytic with low iron and high TIBC. Also with high ferritin but could be in setting of acute illness (acute phase reactant). Soluble transferrin receptor is 6.3 (nl 1.8 - 4.6), indicating probable iron deficiency. Start po ferrous sulfate 07/29, give 1 dose ferrous sucrose. Eventually needs wup for iron deficiency. (4) Chronic cough Current Visit: Yes Status: Acute Code(s): R05 - COUGH SNOMED Code(s): 74607093 Comment: Starting around 2015. Could be from ALAYNA-I. Recently was trialed on PPI but wanted to stop - had no GI symptoms. - Seems to be improved on ARBs. Lisinopril listed as allergy. Status and Disposition: Inpatient.
[2018-07-29] MEDS ORDERED: Lidocaine 2% JELLY* 6 ML JELLY TOPICAL PRN (13:58)
[2018-07-29] MEDS: Ferrous Sulfate TAB* 325 MG PO SCH (15:34)
[2018-07-29] MEDS: Enoxaparin(*) 40 MG/0.4 ML SYR SUBCUT SCH (15:41)
[2018-07-29] MEDS: Carvedilol TAB* 6.25 MG PO SCH (20:55)
[2018-07-30] MEDS: Furosemide TAB* 20 MG PO SCH (07:43)
[2018-07-30] MEDS: Carvedilol TAB* 6.25 MG PO SCH ×2 (07:43→20:41)
[2018-07-30] MEDS: Aspirin 81 mg CHEW TAB* 81 MG TAB.CHEW PO SCH (07:43)
[2018-07-30] MEDS: Ferrous Sulfate TAB* 325 MG PO SCH (07:43)
[2018-07-30] MEDS: Losartan TAB* 25 MG PO SCH ×2 (07:43→20:41)
[2018-07-30] MEDS: Spironolactone TAB* 25 MG PO SCH (07:44)
[2018-07-30] MEDS: Senna TAB PO SCH (07:44)
--- NOTE | 2018-07-30 08:33 | PN ---
Subjective Date of Service: 07/30/18 Interval History: No c/o. Family History: Unchanged from Admission Social History: Unchanged from Admission Past Medical History: Unchanged from Admission Objective Active Medications: Acetaminophen (Tylenol Tab*) 650 mg PO Q4H PRN PRN Reason: FEVER/PAIN Last Admin: 07/21/18 23:52 Dose: 650 mg Al Hydrox/Mg Hydrox/Simethicone (Maalox Plus*) 30 ml PO Q4H PRN PRN Reason: INDIGESTION Last Admin: 07/21/18 17:53 Dose: 30 ml Aspirin (Aspirin 81 Mg Chew Tab*) 81 mg PO DAILY [facility] Last Admin: 07/30/18 07:43 Dose: 81 mg Benzonatate (Tessalon Cap*) 100 mg PO BID PRN PRN Reason: COUGH Last Admin: 07/28/18 22:04 Dose: 100 mg Carvedilol (Coreg Tab*) 12.5 mg PO BID [facility] Last Admin: 07/30/18 07:43 Dose: 12.5 mg Docusate Sodium (Colace Cap*) 100 mg PO DAILY PRN PRN Reason: CONSTIPATION Enoxaparin Sodium (Lovenox(*)) 40 mg SUBCUT Q24H [facility] Last Admin: 07/29/18 15:41 Dose: 40 mg Ferrous Sulfate (Ferrous Sulfate Tab*) 325 mg PO DAILY [facility] Last Admin: 07/30/18 07:43 Dose: 325 mg Furosemide (Lasix Tab*) 20 mg PO DAILY [facility] Last Admin: 07/30/18 07:43 Dose: 20 mg Lidocaine HCl (Lidocaine 2% Jelly*) 1 applic TOPICAL TID PRN PRN Reason: ITCHING Losartan Potassium (Cozaar Tab*) 50 mg PO BID [facility] Last Admin: 07/30/18 07:43 Dose: 50 mg Ondansetron HCl (Zofran Inj*) 4 mg IV Q4H PRN PRN Reason: NAUSEA/VOMITING Polyethylene Glycol/Electrolytes (Miralax*) 17 gm PO DAILY PRN PRN Reason: CONSTIPATION Senna (Senokot Tab*) 1 tab PO DAILY [facility] Last Admin: 07/30/18 07:44 Dose: Not Given Spironolactone (Aldactone Tab*) 25 mg PO DAILY [facility] Last Admin: 07/30/18 07:44 Dose: 25 mg Tramadol HCl (Ultram*) 50 mg PO Q12H PRN PRN Reason: DISCOMFORT Last Admin: 07/23/18 09:58 Dose: 50 mg Vital Signs - 8 hr 07/30/18 07/30/18 07/30/18 03:41 07:25 07:53 Temperature 97.3 F 96.9 F Pulse Rate 79 71 Respiratory 16 16 16 Rate Blood Pressure 128/85 144/91 (mmHg) O2 Sat by Pulse 100 100 Oximetry Oxygen Devices in Use Now: None Appearance: Alert, in a chair. In fair spirits. Looks comfortable. Extremities: No Clubbing, Cyanosis, - - tr edema BL Skin: No Rash or Ulcers, No Nodules or Sclerosis, - Neurological: Alert and Oriented x 3, NL Sensation Result Diagrams: 07/24/18 05:59 07/28/18 05:53 Assess/Plan/Problems-Billing Assessment: 58yo Fwith obesity, HTN, chronic cough, presents with progressive dyspnea and LE edema. She was found to be hypertensive and with CXR showing pulmonary edema. TTE with new HFrEF 25% thought to be NICM 2/2 viral etiology or HTN - Patient Problems (1) Heart failure with reduced ejection fraction Current Visit: Yes Status: Acute Code(s): I50.20 - UNSPECIFIED SYSTOLIC ( CONGESTIVE) HEART FAILURE SNOMED Code(s): 440326208 Comment: - Acute systolic CHF exacerbation, improved. New diagnosis. Continue losartan, spironolactone, furosemide, increased dose of carvedilol. - 8 beats of Vtach earlier - K and Mg WNL - awaiting Life Vest. K+ 4.1 07/28/18. - strict I&Os and daily weights - Plan to f/u with Dr Cui as outpatient to complete ischemic w/u, f/u EF, and discuss AICD. NYHA Functional Capacity I, Objective Assessment A. (2) Hypertension Current Visit: Yes Status: Acute Code(s): I10 - ESSENTIAL (PRIMARY) HYPERTENSION SNOMED Code(s): 71176782 Comment: Increased carvedilol to 12.5 mg bid on 3/16 PM, continue losartan, furosemide, and spironolactone. (3) Anemia Current Visit: Yes Status: Acute Code(s): D64.9 - ANEMIA, UNSPECIFIED SNOMED Code(s): 215344719 Comment: Microcytic with low iron and high TIBC. Also with high ferritin but could be in setting of acute illness (acute phase reactant). Soluble transferrin receptor is 6.3 (nl 1.8 - 4.6), indicating probable iron deficiency. Started po ferrous sulfate 07/29, gave 1 dose ferrous sucrose. Eventually needs wup for iron deficiency. (4) Chronic cough Current Visit: Yes Status: Acute Code(s): R05 - COUGH SNOMED Code(s): 24300285 Comment: Starting around 2015. Could be from ALAYNA-I. Recently was trialed on PPI but wanted to stop - had no GI symptoms. - Seems to be improved on ARBs. Lisinopril listed as allergy. Status and Disposition: Inpatient.
[2018-07-30] MEDS: Enoxaparin(*) 40 MG/0.4 ML SYR SUBCUT SCH (15:42)
[2018-07-31 06:23] LABS: Hematocrit 34 % (33-41); Hemoglobin 10.9 g/dL (12.0-16.0); Mean Platelet Volume 8.2 fL (7.4-10.4); Platelet Count 301 10^3/uL (150-450)
[2018-07-31] MEDS: Carvedilol TAB* 6.25 MG PO SCH ×2 (09:08→21:07)
[2018-07-31] MEDS: Furosemide TAB* 20 MG PO SCH (09:08)
[2018-07-31] MEDS: Ferrous Sulfate TAB* 325 MG PO SCH (09:08)
[2018-07-31] MEDS: Aspirin 81 mg CHEW TAB* 81 MG TAB.CHEW PO SCH (09:08)
[2018-07-31] MEDS: Losartan TAB* 25 MG PO SCH ×2 (09:08→21:07)
[2018-07-31] MEDS: Spironolactone TAB* 25 MG PO SCH (09:09)
[2018-07-31] MEDS: Senna TAB PO SCH (09:09)
[2018-07-31] MEDS ORDERED: Perflutren Lipid Microsphere* 3 ML VIAL ONE (09:53)
--- NOTE | 2018-07-31 12:41 | ECHO ---
Patient: MALIHA GILES [facility] Rec#: [id number] : 1960 Date: 07/31/2018 Age: 58y Height: 165 cm / 65.0 in Weight: 103 kg / 227.0 lbs Sex: F BSA: 2.09 Room#: [facility] Admit Date#: 07/20/2018 Type: Inpatient Referring: Kin Chaidez MD Reading: Romel Culp MD Assembly Member: Maliha Taylor RDCS CC: Trina Frederick Transthoracic Echocardiogram Indication: Cardiomyopaathy BP: 143/95 HR: 87 Rhythm: NSR Findings History: HTN,GERD,morbid obesity. Technical Comments: The study is technically limited due to patient body habitus. Definity used to enhance iamges. Completed at 1045. Left Ventricle: The left ventricular chamber size is normal. Mild to moderate concentric left ventricular hypertrophy is observed. Moderate global hypokinesis of the left ventricle is observed. There is moderately decreased left ventricular systolic function. The estimated ejection fraction is 30-35%. Abnormal left ventricular diastolic function is observed. Left Atrium: The left atrium is moderately dilated. Right Ventricle: The right ventricular cavity size is normal. The right ventricular global systolic function is low normal. Right Atrium: The right atrium is mildly dilated. Aortic Valve: The aortic valve is trileaflet. There is mild aortic regurgitation. There is no evidence of aortic stenosis. Mitral Valve: The mitral valve leaflets are mildly thickened. There is mild mitral regurgitation. There is no evidence of mitral stenosis. Tricuspid Valve: The tricuspid valve leaflets are normal. There is trace tricuspid regurgitation. Unable to estimate the right ventricular systolic pressure. There is no tricuspid stenosis. Pulmonic Valve: The pulmonic valve appears normal. There is trace to mild pulmonic regurgitation. There is no pulmonic stenosis. Pericardium: The pericardium appears normal. Aorta: There is mild dilatation of the ascending aorta. There is mild dilatation of the aortic arch. There is no dilation of the aortic root. Pulmonary Artery: The main pulmonary artery is not well visualized. Venous: The venous system is not well visualized. Contrast: Definity was used to optimize study. A total of 5 ml used. Intravenous contrast was used to enhance endocardial border definition. Conclusions Mild to moderate concentric left ventricular hypertrophy is observed. Moderate global hypokinesis of the left ventricle is observed. There is moderately decreased left ventricular systolic function. The estimated ejection fraction is 30-35%. The right ventricular global systolic function is low normal. There is mild aortic regurgitation. There is no evidence of aortic stenosis. There is mild mitral regurgitation. There is trace tricuspid regurgitation. Unable to estimate the right ventricular systolic pressure. The pericardium appears normal. Compared to study of 07/20/18, the LV function has slight improvement. Previous was 25%. Valve sructures are the same Measurements Name Value Normal Range RVIDd (AP) 2D 3.2 cm (0.9 - 2.6) RVDdMajor (2D) 3.8 cm (2.2 - 4.4) RAd ISD 4CH 5.9 cm (3.4 - 4.9) RA (A4C)W 4.6 cm (2.9 - 4.6) IVSd (2D) 1.2 cm (0.6 - 1) LVPWd (2D) 1.3 cm (0.6 - 1) LVIDd (2D) 5.4 cm (3.6 - 5.4) LVIDs (2D) 4.5 cm - LV FS (2D) 17 % (25 - 45) Aortic Annulus 1.9 cm (1.4 - 2.6) Ao root diameter (2D) 2.9 cm (2.1 - 3.5) Ascending Ao 3.6 cm (2.1 - 3.4) Aortic arch 3.6 cm (1.8 - 3.4) Descending Ao 0.4 cm - LA dimension (AP) 2D 5 cm (2.3 - 3.8) LAd ISD 4CH 6.8 cm (2.9 - 5.3) LA ISD 4CH W 4.3 cm (2.5 - 4.5) Name Value Normal Range LA ESV SP 4CH (A/L) 38 ml - LA ESV SP 2CH (A/L) 34 ml - Name Value Normal Range MV E-wave Vmax 1.2 m/sec - MV deceleration time 135 msec - MV A-wave Vmax 0.4 m/sec - MV E:A ratio 2.9 ratio - LV septal e' Vmax 0.05 m/sec - LV lateral e' Vmax 0.07 m/sec - LV E:e' septal ratio 24 ratio - LV E:e' lateral ratio 17.14 ratio - Name Value Normal Range AV Vmax 1.6 m/sec - AV VTI 26.7 cm - AV peak gradient 10 mmHg - AV mean gradient 6 mmHg - LVOT Vmax 1 m/sec - LVOT VTI 18.2 cm - LVOT peak gradient 4 mmHg - LVOT mean gradient 2 mmHg - AR PHT 554 msec - Name Value Normal Range MR Vmax 4.4 m/sec - MR VTI 134 cm - Name Value Normal Range PV Vmax 0.7 m/sec - PV peak gradient 2 mmHg -
[2018-07-31] MEDS: Enoxaparin(*) 40 MG/0.4 ML SYR SUBCUT SCH (15:25)
--- NOTE | 2018-07-31 21:40 | PN ---
Subjective Interval History: Pt understandably frustrated that lifevest is still difficult to come by - not covered by insurance and still pending charitable programs. EF resulted 30-35%, which, per cardiology, is not enough to be able to go home without a life vest. Family History: Unchanged from Admission Social History: Unchanged from Admission Past Medical History: Unchanged from Admission Objective Active Medications: Acetaminophen (Tylenol Tab*) 650 mg PO Q4H PRN PRN Reason: FEVER/PAIN Last Admin: 07/21/18 23:52 Dose: 650 mg Al Hydrox/Mg Hydrox/Simethicone (Maalox Plus*) 30 ml PO Q4H PRN PRN Reason: INDIGESTION Last Admin: 07/21/18 17:53 Dose: 30 ml Aspirin (Aspirin 81 Mg Chew Tab*) 81 mg PO DAILY [facility] Last Admin: 07/31/18 09:08 Dose: 81 mg Benzonatate (Tessalon Cap*) 100 mg PO BID PRN PRN Reason: COUGH Last Admin: 07/28/18 22:04 Dose: 100 mg Carvedilol (Coreg Tab*) 12.5 mg PO BID [facility] Last Admin: 07/31/18 21:07 Dose: 12.5 mg Enoxaparin Sodium (Lovenox(*)) 40 mg SUBCUT Q24H [facility] Last Admin: 07/31/18 15:25 Dose: 40 mg Ferrous Sulfate (Ferrous Sulfate Tab*) 325 mg PO DAILY [facility] Last Admin: 07/31/18 09:08 Dose: 325 mg Furosemide (Lasix Tab*) 20 mg PO DAILY [facility] Last Admin: 07/31/18 09:08 Dose: 20 mg Lidocaine HCl (Lidocaine 2% Jelly*) 1 applic TOPICAL TID PRN PRN Reason: ITCHING Losartan Potassium (Cozaar Tab*) 50 mg PO BID [facility] Last Admin: 07/31/18 21:07 Dose: 50 mg Ondansetron HCl (Zofran Inj*) 4 mg IV Q4H PRN PRN Reason: NAUSEA/VOMITING Polyethylene Glycol/Electrolytes (Miralax*) 17 gm PO DAILY PRN PRN Reason: CONSTIPATION Senna (Senokot Tab*) 1 tab PO DAILY [facility] Last Admin: 07/31/18 09:09 Dose: Not Given Spironolactone (Aldactone Tab*) 25 mg PO DAILY [facility] Last Admin: 07/31/18 09:09 Dose: 25 mg Vital Signs - 8 hr 07/31/18 07/31/18 15:39 19:26 Temperature 97.1 F 96.7 F Pulse Rate 62 73 Respiratory 18 16 Rate Blood Pressure 146/95 154/89 (mmHg) O2 Sat by Pulse 100 100 Oximetry Oxygen Devices in Use Now: None Cardiovascular: RRR Extremities: No Edema Result Diagrams: 07/31/18 05:53 07/28/18 05:53 Assess/Plan/Problems-Billing Assessment: 58W obesity, HTN, chronic cough, presents with progressive dyspnea and LE edema. She was found to be hypertensive and with CXR showing pulmonary edema. TTE with new HFrEF 25% thought to be NICM 2/2 viral etiology or HTN. Repeat EF 30-35%, pending lifevest for discharge. - Patient Problems (1) Heart failure with reduced ejection fraction Comment: Acute systolic CHF exacerbation, improved. New diagnosis. -Continue losartan, spironolactone, furosemide, carvedilol. - Plan to f/u with Dr Cui as outpatient to complete ischemic w/u, f/u EF, and discuss AICD. NYHA Functional Capacity I, Objective Assessment A. (2) Hypertension Comment: Increased carvedilol to 12.5 mg bid on 07/29 PM, continue losartan, furosemide, and spironolactone. (3) Anemia Comment: Microcytic with low iron and high TIBC. Also with high ferritin but could be in setting of acute illness (acute phase reactant). Soluble transferrin receptor is 6.3 (nl 1.8 - 4.6), indicating probable iron deficiency. Started po ferrous sulfate 07/29, gave 1 dose ferrous sucrose. Eventually needs wup for iron deficiency. (4) Obesity (BMI 30-39.9) Comment: - diet and exercise encouraged (5) Chronic cough Comment: Starting around 2015. Could be from ALAYNA-I. Recently was trialed on PPI but wanted to stop - had no GI symptoms. - Seems to be improved on ARBs. Lisinopril listed as allergy. (6) DVT prophylaxis Comment: Dotnox (7) Full code status Status and Disposition: Inpatient.
[2018-08-01] MEDS: Senna TAB PO SCH (08:57)
[2018-08-01] MEDS: Losartan TAB* 25 MG PO SCH ×2 (08:57→20:25)
[2018-08-01] MEDS: Furosemide TAB* 20 MG PO SCH (08:57)
[2018-08-01] MEDS: Spironolactone TAB* 25 MG PO SCH (08:57)
[2018-08-01] MEDS: Ferrous Sulfate TAB* 325 MG PO SCH (08:58)
[2018-08-01] MEDS: Carvedilol TAB* 6.25 MG PO SCH ×2 (08:58→20:25)
[2018-08-01] MEDS: Aspirin 81 mg CHEW TAB* 81 MG TAB.CHEW PO SCH (08:58)
--- NOTE | 2018-08-01 11:08 | PN ---
Subjective Date of Service: 08/01/18 - SHF, troponin elevation Interval History: I was asked to see the patient given lifevest has not been approved by insurance yet. Patient was expressing frustration and was apathetic this morning. She denies chest pain, sob, edema, dizziness or palpitations. She states she feels back to her baseline. Medications Active Medications: Acetaminophen (Tylenol Tab*) 650 mg PO Q4H PRN PRN Reason: FEVER/PAIN Last Admin: 07/21/18 23:52 Dose: 650 mg Al Hydrox/Mg Hydrox/Simethicone (Maalox Plus*) 30 ml PO Q4H PRN PRN Reason: INDIGESTION Last Admin: 07/21/18 17:53 Dose: 30 ml Aspirin (Aspirin 81 Mg Chew Tab*) 81 mg PO DAILY [facility] Last Admin: 08/01/18 08:58 Dose: 81 mg Benzonatate (Tessalon Cap*) 100 mg PO BID PRN PRN Reason: COUGH Last Admin: 07/28/18 22:04 Dose: 100 mg Carvedilol (Coreg Tab*) 18.75 mg PO BID [facility] Enoxaparin Sodium (Lovenox(*)) 40 mg SUBCUT Q24H [facility] Last Admin: 07/31/18 15:25 Dose: 40 mg Ferrous Sulfate (Ferrous Sulfate Tab*) 325 mg PO DAILY [facility] Last Admin: 08/01/18 08:58 Dose: 325 mg Furosemide (Lasix Tab*) 20 mg PO DAILY [facility] Last Admin: 08/01/18 08:57 Dose: 20 mg Lidocaine HCl (Lidocaine 2% Jelly*) 1 applic TOPICAL TID PRN PRN Reason: ITCHING Losartan Potassium (Cozaar Tab*) 50 mg PO BID [facility] Last Admin: 08/01/18 08:57 Dose: 50 mg Ondansetron HCl (Zofran Inj*) 4 mg IV Q4H PRN PRN Reason: NAUSEA/VOMITING Polyethylene Glycol/Electrolytes (Miralax*) 17 gm PO DAILY PRN PRN Reason: CONSTIPATION Senna (Senokot Tab*) 1 tab PO DAILY [facility] Last Admin: 08/01/18 08:57 Dose: 1 tab Spironolactone (Aldactone Tab*) 25 mg PO DAILY [facility] Last Admin: 08/01/18 08:57 Dose: 25 mg Objective Vital Signs: Temp Pulse Resp BP Pulse Ox 97.9 F 66 16 141/91 100 08/01/18 08:05 08/01/18 08:05 08/01/18 08:05 08/01/18 08:05 08/01/18 08:05 Oxygen Devices in Use Now: None Appearance: well nourished, NAD, A+O x3 cooperative with exam. Ears/Nose/Mouth/Throat: NL Teeth, Lips, Gums, Mucous Membranes Moist Neck: NL Appearance and Movements; NL JVP, Trachea Midline, No Thyroid Enlargement, Masses Respiratory: Symmetrical Chest Expansion and Respiratory Effort, Clear to Auscultation Cardiovascular: NL Sounds; No Murmurs; No JVD, No Edema Abdominal: NL Sounds; No Tenderness; No Distention Extremities: No Edema Neurological: Alert and Oriented x 3 Lines/Tubes/Other Access: Clean, Dry and Intact Peripheral IV Laboratory Results: 07/31/18 05:53 07/28/18 05:53 Total Bilirubin 0.70 mg/dL (0.2-1.0) 07/21/18 06:23 AST 39 U/L (13-39) 07/21/18 06:23 ALT 28 U/L (7-52) 07/21/18 06:23 Alkaline Phosphatase 73 U/L (34-104) 07/21/18 06:23 B-Natriuretic Peptide 566 pg/mL (<=100) H 07/20/18 21:04 Total Protein 8.0 g/dL (6.4-8.9) 07/21/18 06:23 Albumin 3.6 g/dL (3.2-5.2) 07/21/18 06:23 Globulin 4.4 g/dL (2-4) H 07/21/18 06:23 Albumin/Globulin Ratio 0.8 (1-3) L 07/21/18 06:23 Triglycerides 100 mg/dL 07/21/18 06:23 Cholesterol 104 mg/dL 07/21/18 06:23 LDL Cholesterol 58 mg/dL 07/21/18 06:23 HDL Cholesterol 26.2 mg/dL 07/21/18 06:23 TSH 1.41 mcIU/mL (0.34-5.60) 07/22/18 05:58 07/20/18 07/21/18 07/21/18 21:04 00:43 06:23 Troponin I 0.07 H* 0.09 H* 0.09 H* 07/21/18 07/23/18 15:40 08:09 Troponin I 0.09 H* 0.05 H* Diagnostic Imaging: repeat limited echo 07/30/2018 LVEF 30-35% mild to moderate LVH, mild AI, mild MR. EKG Data: none to review since 07/21/2018 telemetry was reviewed she remains in NSR with occasional PVC. (HR 60-70's) Assessment/Plan #1 Newly diagnosed SHF; etiology not clear. She did not have regional WMA on echo. LVEF on repeat limited 30-35%. Troponin peaked at .09 on 07/21/2018. She denies chest pain and is compensated on exam. Will uptitrate Coreg to 18/75 mg Po BID to help reduce ventricular ectopy. Continue losartan 50mg Po BID and Aldactone 25mg PO daily, Lasix 20/day. She is to be risk stratified with EST with [facility] 08/02/2018. I spoke with Dr. Cui who is agreeable to this plan of care. She had mild to moderate LVH and BP has been elevated differential diagnosis includes hypertensive cardiomyopathy or viral etiology. #2 h/o HTN; BP elevated today. Coreg to be increased to 18.75mg Po BID. will follow. We can consider increasing ARB or aldactone in future. #3 h/o mild AI; compensated on exam. will follow outpatient. #4 Disposition pending course. Patient is full code. lifevest has not been approved by insurance company yet. Attending: Romel Culp
[2018-08-01] MEDS: Enoxaparin(*) 40 MG/0.4 ML SYR SUBCUT SCH (16:29)
--- NOTE | 2018-08-01 20:28 | PN ---
Subjective Interval History: No clinical change. Seen by cardiology and now recommending nuclear stress to risk stratify for SCD - may be ok going home without life vest if that test is low risk. Pt trying to keep spirits up but noted to cry overnight and this AM. Would like to go home. Has been a long hospitalization for her. Family History: Unchanged from Admission Social History: Unchanged from Admission Past Medical History: Unchanged from Admission Objective Active Medications: Acetaminophen (Tylenol Tab*) 650 mg PO Q4H PRN PRN Reason: FEVER/PAIN Last Admin: 07/21/18 23:52 Dose: 650 mg Al Hydrox/Mg Hydrox/Simethicone (Maalox Plus*) 30 ml PO Q4H PRN PRN Reason: INDIGESTION Last Admin: 07/21/18 17:53 Dose: 30 ml Aspirin (Aspirin 81 Mg Chew Tab*) 81 mg PO DAILY [facility] Last Admin: 08/01/18 08:58 Dose: 81 mg Benzonatate (Tessalon Cap*) 100 mg PO BID PRN PRN Reason: COUGH Last Admin: 07/28/18 22:04 Dose: 100 mg Carvedilol (Coreg Tab*) 18.75 mg PO BID [facility] Enoxaparin Sodium (Lovenox(*)) 40 mg SUBCUT Q24H [facility] Last Admin: 08/01/18 16:29 Dose: 40 mg Ferrous Sulfate (Ferrous Sulfate Tab*) 325 mg PO DAILY [facility] Last Admin: 08/01/18 08:58 Dose: 325 mg Furosemide (Lasix Tab*) 20 mg PO DAILY [facility] Last Admin: 08/01/18 08:57 Dose: 20 mg Lidocaine HCl (Lidocaine 2% Jelly*) 1 applic TOPICAL TID PRN PRN Reason: ITCHING Losartan Potassium (Cozaar Tab*) 50 mg PO BID [facility] Last Admin: 08/01/18 08:57 Dose: 50 mg Ondansetron HCl (Zofran Inj*) 4 mg IV Q4H PRN PRN Reason: NAUSEA/VOMITING Polyethylene Glycol/Electrolytes (Miralax*) 17 gm PO DAILY PRN PRN Reason: CONSTIPATION Senna (Senokot Tab*) 1 tab PO DAILY [facility] Last Admin: 08/01/18 08:57 Dose: 1 tab Spironolactone (Aldactone Tab*) 25 mg PO DAILY [facility] Last Admin: 08/01/18 08:57 Dose: 25 mg Vital Signs - 8 hr 08/01/18 13:02 Temperature 97.5 F Pulse Rate 73 Respiratory 16 Rate Blood Pressure 147/95 (mmHg) O2 Sat by Pulse 100 Oximetry Oxygen Devices in Use Now: None Appearance: less cheerful Ears/Nose/Mouth/Throat: Mucous Membranes Moist Respiratory: Clear to Auscultation Cardiovascular: RRR Extremities: No Edema Neurological: Alert and Oriented x 3, NL Gait Result Diagrams: 07/31/18 05:53 07/28/18 05:53 Assess/Plan/Problems-Billing Assessment: 58W obesity, HTN, chronic cough, presents with progressive dyspnea and LE edema. She was found to be hypertensive and with CXR showing pulmonary edema. TTE with new HFrEF 25% thought to be NICM 2/2 viral etiology or HTN. Repeat EF 30-35%, pending lifevest for discharge. - Patient Problems (1) Heart failure with reduced ejection fraction Comment: Acute systolic CHF exacerbation, improved. New diagnosis. -Continue losartan, spironolactone, furosemide, carvedilol. - Plan to f/u with Dr Cui as outpatient - will get stress test 08/02 to risk stratify for life vest (currently hard to attain, holding up discharge) NYHA Functional Capacity I, Objective Assessment A. (2) Hypertension Comment: Increased carvedilol to 18.5 mg bid on 08/01 PM, continue losartan, furosemide, and spironolactone. (3) Anemia Comment: Microcytic with low iron and high TIBC. Also with high ferritin but could be in setting of acute illness (acute phase reactant). Soluble transferrin receptor is 6.3 (nl 1.8 - 4.6), indicating probable iron deficiency. Started po ferrous sulfate 07/29, gave 1 dose ferrous sucrose. Eventually needs wup for iron deficiency. (4) Obesity (BMI 30-39.9) Comment: - diet and exercise encouraged (5) Chronic cough Comment: Starting around 2015. Could be from ALAYNA-I. Recently was trialed on PPI but wanted to stop - had no GI symptoms. - Seems to be improved on ARBs. Lisinopril listed as allergy. (6) DVT prophylaxis Comment: Dotnox (7) Full code status Status and Disposition: Inpatient.
[2018-08-02 08:05] VITALS: BP 135/84
[2018-08-02] MEDS ORDERED: Regadenoson* 0.4 MG/5 ML SYRINGE ONE (09:54)
[2018-08-02] MEDS: Ferrous Sulfate TAB* 325 MG PO SCH (11:58)
[2018-08-02] MEDS: Aspirin 81 mg CHEW TAB* 81 MG TAB.CHEW PO SCH (11:58)
[2018-08-02] MEDS: Furosemide TAB* 20 MG PO SCH (11:58)
[2018-08-02] MEDS: Spironolactone TAB* 25 MG PO SCH (11:59)
[2018-08-02] MEDS: Carvedilol TAB* 6.25 MG PO SCH (11:59)
[2018-08-02] MEDS: Losartan TAB* 25 MG PO SCH (11:59)
[2018-08-02] MEDS: Senna TAB PO SCH (12:00)
[2018-08-02] MEDS ORDERED: Iron Sucrose* 200 MG in NS 0.9% 100 ML* 100 ML IVPB ONE (12:45)
--- NOTE | 2018-08-02 13:29 | CONS ---
FOLLOWUP VISIT NOTE: DATE OF CONSULT: 08/02/18 I was asked to reconsult on this patient by the hospitalist, Dr. Shireen Sommer. HISTORY OF PRESENT ILLNESS: See my original consult from 07/22/18. This is a very pleasant 58-year-old woman admitting with cardiomyopathy and congestive heart failure. She was diuresed and started on heart failure meds and has had improvement in her symptoms. She also has had a decrease in her weight from a high of 239 on 07/24 to 228 today. She reports that her abdominal distention and her edema have improved. Her dyspnea on exertion has resolved. She is able to walk around the unit without problems. She has had no orthopnea and her cough resolved off of lisinopril. She has had no chest pain. No syncope or near syncope. PHYSICAL EXAM: Her blood pressure is 135/84 with a pulse of 65. No significant JVD. Cardiac Exam: S1 and S2 without murmurs, gallops, or rubs. Chest was clear. Extremities: 1+ edema of the lower extremities. DIAGNOSTIC STUDIES/LAB DATA: Her labs from 07/31/18 included hematocrit of 34, platelet count of 301. Sed rate on 07/23/18 was 73. Her labs from 07/28/18 included sodium 135, potassium of 4.1, BUN of 14, creatinine of 1.09. Her troponin was 0.09 on 07/21/18 and was 0.05 on 07/23/18. Iron sat was 6% on 12/01. She had a followup echocardiogram on 07/30/18, which revealed [id number] LVH, moderate global hypokinesis, EF of 30% to 35%, abnormal diastolic function. RV function was low normal. There is mild MR, trace TR. Compared to the study of 07/20/18, the LV function has improved 25% and she had a nuclear scan from today, which revealed no evidence of ischemia. She did have an ejection fraction mild to moderately reduced at 39%. She has been on monitor during this admission. Initially she had some PVCs and nonsustained wide complex arrhythmia on 07/24/18 with what appeared to be an 8- beat run of wide complex tachycardia, plus possible VT versus SVT with aberrancy and she has had no significant arrhythmias since then. IMPRESSION AND PLAN: My impression is that Ms. Ruano appears to have had improvement in her left ventricular dysfunction, congestive heart failure of unclear etiology. We discussed at length options for further treatment evaluation. I explained that the nuclear does not completely exclude an ischemic etiology but is relatively low risk given her lack of perfusion abnormalities and significant improvement in symptoms and function and congestive heart failure. She understands the small risk for arrhythmia, however, given the overall situation including her improvement, prolonged monitoring and no recent arrhythmias, I think she is in probable nonischemic cardiomyopathy. I think she is a relatively low risk for sudden cardiac arrest. She understands the risks and benefits. We initially had ordered a LifeVest for primary prevention given her low ejection fraction of 25% on presentation; however, I think that the risk at this point is lower based on her clinical course. Therefore, I believe it is reasonable to ndefer the LifeVest. My plan is as follows: 1. I strongly recommend that she continue her medications and monitor her weight closely. 2. She is to advance her heart failure regimen as tolerated. We will increase her carvedilol to 18.75 mg b.i.d. 3. We will advance her Aldactone to 50 mg a day. 4. I would consider discharging her on torsemide 10 mg a day because of better bioavailability. 5. Continue losartan. 6. She is to follow up within 1 week with our nurse practitioner to further advance her medicines or sooner if symptoms develop. 7. Hopefully, she will continue to have improvement in her LV function. 8. She is to have repeat labs including electrolytes and iron, iron binding, troponin, sed rate, and CRP prior to discharge. Presumably, she may have had a hypertensive cardiomyopathy or viral cardiomyopathy, although she understands the etiology at this point is still uncertain. TIME SPENT: More than half of the 35 plus minutes spent with the patient was in discussion [id number] and coordination of care. The case was reviewed with Kerri as well as her nurses and with Kimberly Sommer of the hospitalist service. [id number]/[facility] #: [id number] CHRIS
[2018-08-02 14:17] LABS: Troponin I 0.04 ng/mL (<0.04)
[2018-08-02 14:21] LABS: Anion Gap 7 mmol/L (2-11); BUN/Creatinine Ratio 21.6 (8-20); Blood Urea Nitrogen 21 mg/dL (6-24); C Reactive Protein 4.45 mg/L (<8.01); CO2 Carbon Dioxide 27 mmol/L (22-32); Calcium 9.6 mg/dL (8.6-10.3); Chloride 101 mmol/L (101-111); EGFR African American 71.4 (>60); Glucose 98 mg/dL (70-100); Magnesium 1.8 mg/dL (1.9-2.7); Potassium 4.6 mmol/L (3.5-5.0); Sodium 135 mmol/L (135-145)
[2018-08-02 14:24] LABS: % Iron Saturation 18 % (15-55); Iron 80 ug/dL (50-212); Total Iron Binding Capacity 452 mcg/dL (250-450); Transferrin 323 mg/dL (203-362)
[2018-08-02] MEDS ORDERED: Magnesium Sulfate 2 GM IV* 2 GM/50 ML BAG IVPB ONE (14:41)
[2018-08-02 14:44] LABS: Ferritin 455.6 ng/mL (11-307)
[2018-08-02] MEDS: Enoxaparin(*) 40 MG/0.4 ML SYR SUBCUT SCH (15:04)
--- NOTE | 2018-08-02 21:15 | DS ---
CC: Trina Forde RPA; Dr. Cui * DISCHARGE SUMMARY: DATE OF ADMISSION: DATE OF DISCHARGE: 08/02/18 PRIMARY CARE PROVIDER: Trina Forde RPA DISPOSITION: Home. CONDITION: Good. PRIMARY DIAGNOSIS: Heart failure, reduced ejection fraction. SECONDARY DIAGNOSES: 1. Hypertension. 2. Anemia. CONSULTS: Cardiology, Dr. Cui. PERTINENT STUDIES: Transthoracic echocardiogram on 07/20/18: LV chamber size mildly dilated, mild concentric LV hypertrophy, global hypokinesis of LV with minor regional variation, severely decreased LV systolic function with EF 25% to 30%. [place] appears somewhat better preserved. LV diastolic filling pattern is restrictive. LA mild to moderately dilated, RV slightly dilated, RV global systolic function moderately reduced, RA mild to moderately dilated. Trace MR and TR, [id number] pulmonary hypertension, mild dilatation of ascending aorta. Transthoracic echocardiogram on 07/30/18: Moderate global hypokinesis of LV, moderately decreased LV systolic function with estimated ejection fraction 30% to 35%. Nuclear cardiac stress test on 08/02/18: Ejection fraction decreased at 39% on the stress image. Wall motion demonstrates global hypokinesis. No definite reversible perfusion defects identified. Assessment: Intermediate risk. HISTORY OF PRESENT ILLNESS: A 58-year-old woman with history of obesity, hypertension, presented to the emergency room from urgent care for cough and shortness of breath. The cough has been chronic for about the last 2 years and prior evaluation by ENT was unrevealing; however, recently this cough had been accompanied by an increase in shortness of breath over the last week associated with lower extremity swelling. She had denied chest pain. She stated that she had a stress test about 5 years prior to this presentation that was unremarkable. Given her progressive shortness of breath, she had to sleep in a chair. Her daughter notes that she has been sleeping in a chair for the last few weeks and states these symptoms have been going on longer than her mother mentions. The patient denies recent fevers, chills, nausea, vomiting, diaphoresis, or abdominal discomfort. HOSPITAL COURSE: In the emergency room, the patient's blood pressure was noted to be 190/114. She was immediately started on IV diuretics and blood pressure control and admitted to the medicine floor. By the next day, her TTE showed heart failure with severely reduced ejection fraction, so Cardiology was consulted. The patient continued on IV diuresis while starting on an up titrating an appropriate systolic heart failure regimen. Of note, the patient' s cough resolved during this admission and it was thought likely to be from the lisinopril that she was started on a couple years ago. She was also noted to have anemia, likely anemia of chronic disease and she was given IV iron throughout admission. Given her reduced ejection fraction, it was deemed that she would need a LifeVest before her discharge; however, given unknown etiology of her cardiomyopathy, insurance had denied coverage of needed LifeVest. The patient was unable to afford LifeVest, so she remained inpatient while pending further plan. Repeat echocardiogram did not show sufficient improvement in ejection fraction to justify not needing a LifeVest on discharge, so the patient underwent nuclear stress on day of discharge, which showed ejection fraction of 39% and no focal perfusion defects, so it was deemed she was safe to be discharged without LifeVest. Her heart failure regimen and blood pressure regimen were optimized. On day of discharge, she denied all symptoms. PHYSICAL EXAMINATION: She is afebrile, heart rate in the 60s, blood pressure 135/84, satting 100% on room air, respiratory rate 12. General: Well- appearing woman, pleasant and conversant with daughter at bedside. Neck without JVD. Heart: Regular rate and rhythm. No murmurs, gallops, or rubs. Lungs: Clear to auscultation bilaterally. Abdomen: Soft, nontender, nondistended. Lower Extremities: Warm and well perfused without edema. DISCHARGE PLAN: The patient is to follow up with her primary care physician and Cardiology for ongoing management of her heart failure and hypertension. We extensively discussed adherence to medication regimen, clinic appointments, and healthy diet with good exercise program in order to maintain a healthy weight. She will need continuous monitoring of her electrolytes and renal function as well as ongoing workup for her newly diagnosed cardiomyopathy. DISCHARGE MEDICATIONS: 1. Losartan 50 mg twice a day. 2. Carvedilol 18.75 mg twice a day. 3. Spironolactone 50 mg daily. 4. Torsemide 10 mg daily. 5. Aspirin 81 mg daily. 6. Ferrous sulfate 325 mg daily on an empty stomach. DISCHARGE INSTRUCTIONS: The patient was told to return to the hospital if she experiences recurrence in shortness of breath, lower extremity edema or if she beings experience fevers, cough, chest pain. TIME SPENT: Approximately 60 minutes spent on discharge of this patient, more than half of which was spent with care, coordination at bedside for interview and exam. [id number]/[facility] #: [id number] CHRIS
[2018-08-03] MEDS ORDERED: Spironolactone TAB* 25 MG PO SCH (09:00)
[2018-08-03] MEDS ORDERED: Torsemide TAB* 20 MG PO SCH (09:00)
== END 2018-08-02 18:08 | disposition home or self-care (01) | DRG 194 ==
LOC: ED 20:35 → MEDTELE 23:15
PROVIDERS: ADMIT Pediatrics; ATTEND Internal Medicine
PROC: 4A02XM4 Measurement of Cardiac Total Activity, External Approach (ICD-10-PCS; principal; 2018-08-02)
DX: I11.0 Hypertensive heart disease with heart failure (principal); I31.3 Pericardial effusion (noninflammatory); I47.2 Ventricular tachycardia; K21.9 Gastro-esophageal reflux disease without esophagitis; E66.01 Morbid (severe) obesity due to excess calories; I27.20 Pulmonary hypertension, unspecified; E87.5 Hyperkalemia; I08.3 Combined rheumatic disorders of mitral, aortic and tricuspid valves; I50.23 Acute on chronic systolic (congestive) heart failure; D50.9 Iron deficiency anemia, unspecified; R05 Cough; I42.8 Other cardiomyopathies; I77.819 Aortic ectasia, unspecified site; D72.829 Elevated white blood cell count, unspecified; Z68.38 Body mass index [BMI] 38.0-38.9, adult; Z82.49 Family history of ischemic heart disease and other diseases of the circulatory system; Z79.82 Long term (current) use of aspirin
CPT/HCPCS: 36415; 71045; 71046; 78452; 80048; 80053; 80061; 82728; 83036; 83540; 83550; 83605; 83735; 83880; 84238; 84443; 84484; 85014; 85018; 85025; 85027; 85049; 85652; 86140; 93005; 93017; 93306; 99284; A9270-GY; A9502; C8929; J1644; J1650; J1756; J1940; J2785; J3475; J3480; J3490